=== PATIENT | female | born 1950 | race Caucasian/White ===

== ENCOUNTER 2017-07-18 10:33 | Inpatient (IN) | payer OTHER ==
[~2017-07-18] VITALS: Ht 157.5 cm; Wt 59.2 kg
[~2017-07-18 10:33] MED LIST: ADVAIR 250-501 EACH INH; MEDROL4 M2 PO; VENTOLIN HFA18 GM INH; ZITHROMAX250 M2 PO
--- NOTE | 2017-07-18 10:41 | ED DYSPNEA/ASTHMA COMPLAINT ---
History of Present Illness General Chief Complaint: Dyspnea (COPD, CHF, Other) Stated Complaint: SOB Source: patient, family, EMS Exam Limitations: poor historian Vital Signs & Intake/Output Vital Signs & Intake/Output Vital Signs Date Time Temp Pulse Resp B/P B/P Pulse O2 O2 Flow FiO2 Mean Ox Delivery Rate 07/18 1325 96 BIPAP 40% 07/18 1310 98.0 57 22 136/68 97 BIPAP 40% 07/18 1245 55 95 07/18 1206 57 22 103/56 96 BIPAP 40% 07/18 1105 63 95 07/18 1046 93 Room Air 3.0L 07/18 1039 96.4 70 24 162/105 98 Aerosol Mask Allergies Coded Allergies: No Known Allergies (03/10/17) Reconcile Medications Albuterol Sulfate 2 MG/5 ML SYRUP 5 ML PO 4 TIMES/DAY BREATHING PROBLEMS ( Reported) Albuterol Sulfate (Ventolin Hfa) 90 MCG HFA.AER.AD 2 PUF INH AD PRN RESP. ( Reported) Bupropion HCl (Bupropion HCl Sr) 150 MG TABLET.ER 1 TAB PO DAILY MENTAL HEALTH (Reported) Cefuroxime Axetil (Cefuroxime) 500 MG TABLET 1 TAB PO BID ANTIBIOTIC, INFECTION (Reported) Diltiazem HCl (Cardizem Cd) 240 MG CAP.ER.24H 1 CAP PO DAILY HEART (Reported) Fluticasone/Salmeterol (Advair 250-50 Diskus) (Unknown Strength) BLST.W.DEV ( Unknown Dose) INH BID RESP. (Reported) Furosemide 20 MG TABLET 1 TAB PO DAILY WATER RETENTION (Reported) Metoprolol Succinate 100 MG TAB.ER.24H 1 TAB PO DAILY HEART (Reported) Prednisone 10 MG TABLET 1 TAB PO BID STEROID (Reported) Triage Nurses Notes Reviewed? yes Onset: Abrupt Duration: hour(s):, constant, continues in ED Timing: recent history Severity: moderate, severe HPI: 66-year-old female with a history of COPD comes in respiratory distress from home. She is normally from [place]. She is visiting her daughter. She reports that she still smokes cigarettes. She started with significant breathing issues this morning. Associated cough and some chest tightness and pain. She reports that she was recently treated for pneumonia. BLS reports that her oxygen saturation was 40% on room air when they arrived. Patient was placed on a nebulizer treatment given 125 mg of Solu-Medrol and 2 g of magnesium in route by the plastics factory worker. Her breathing has improved but she still having respiratory symptoms. (Pilo Suggs) Past History Travel History Traveled to [place] past 21 day No Medical History Any Pertinent Medical History? 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 No (Pilo Suggs) Review of Systems Review of Systems Constitutional: Reports: see HPI. EENTM: Reports: see HPI. Respiratory: Reports: see HPI. Cardiovascular: Reports: see HPI. GI: Reports: no symptoms. Genitourinary: Reports: no symptoms. Musculoskeletal: Reports: no symptoms. Skin: Reports: no symptoms. Neurological/Psychological: Reports: no symptoms. Hematologic/Endocrine: Reports: no symptoms. Immunologic/Allergic: Reports: no symptoms. All Other Systems: Reviewed and Negative (Pilo Suggs) Physical Exam Physical Exam General Appearance: alert, awake, severe distress Head: atraumatic Eyes: Bilateral: normal appearance. Ears, Nose, Throat: hearing grossly normal Neck: normal inspection Respiratory: decreased breath sounds, rhonchi, wheezing, respiratory distress ( moderate/severe) Cardiovascular: regular rate/rhythm Extremities: normal inspection Neurologic/Psych: awake, alert Skin: intact, normal color Core Measures ACS in differential dx? Yes CVA/TIA Diagnosis No Sepsis Present: No Sepsis Focused Exam Completed? No (Pilo Suggs) Progress Differential Diagnosis: asthma, AMI, bronchitis, costochondritis, CHF, COPD, pericarditis, pulmonary embolism, pneumonia, pneumothorax, rib fracture, unstable angina Plan of Care: Orders Procedure Date/time Status Patient Data 07/18 1329 Active BIPAP 07/18 1320 Complete ARTERIAL BLOOD GAS (GEN) 07/18 1302 Complete Admit to inpatient 07/18 1213 Active BLOOD CULTURE 07/18 1210 Active BIPAP 07/18 1105 Complete ARTERIAL BLOOD GAS (GEN) 07/18 1041 Complete Telemetry/Banking Analyst 07/18 104 Active LOWER RESPIRATORY CULTURE 07/18 104 Active TROPONIN LEVEL 07/18 104 Complete COMPREHENSIVE METABOLIC PANEL 07/18 104 Complete CBC WITHOUT DIFFERENTIAL 07/18 104 Complete EKG 07/19 1039 Active Laboratory Tests 07/18/17 1250: pH 7.32 L, pCO2 71 *H, pO2 78 L, HCO3 36 H, ABG O2 Sat (Measured) 92.0 L, Carboxyhemoglobin 2.5, O2 Concentration % 40%, Respiration Rate 22, O2 Delivery Method VISION, Vent Mode ST, Expiratory Pressure 6, Inspiratory Pressure 22, Phlebotomy Draw Site LEFT RADIAL 07/18/17 1110: Anion Gap 8, Estimated GFR > 60, BUN/Creatinine Ratio 20.0, Glucose 173 H, Calcium 8.5, Total Bilirubin 0.9, AST 24, ALT 57 H, Alkaline Phosphatase 81, Troponin I < 0.01, Total Protein 6.8, Albumin 3.6, Globulin 3.2, Albumin/ Globulin Ratio 1.1, CBC w Diff NO MAN DIFF REQ, RBC 4.94, MCV 91.2, MCH 29.1, MCHC 31.9 L, RDW 16.1 H, MPV 7.5, Gran % 76.2 H, Lymphocytes % 13.7 L, Monocytes % 7.9, Eosinophils % 2.0, Basophils % 0.2, Absolute Granulocytes 9.8 H, Absolute Lymphocytes 1.8, Absolute Monocytes 1.0 H, Absolute Eosinophils 0.3 , Absolute Basophils 0 07/18/17 1050: pH 7.27 *L, pCO2 76 *H, pO2 75 L, HCO3 34 H, ABG O2 Sat (Measured) 90.0 L, Carboxyhemoglobin 2.7, O2 Concentration % 3L, O2 Delivery Method NC, Phlebotomy Draw Site LEFT RADIAL Microbiology 07/18 1220 BLOOD: Blood Culture - RECD 07/18 1210 BLOOD: Blood Culture - RECD 07/18 104 LOWER RESP: Respiratory Culture - ORD 07/19 1039 LOWER RESP: Gram Stain - ORD Diagnostic Imaging: Viewed by Me: Radiology Read. Discussed w/RAD: Radiology Read. Radiology Impression: PATIENT: ROSS MARRUFO PRESENT AGE: 66 PATIENT ACCOUNT NO: [id number] : 50 LOCATION: [facility] ORDERING PHYSICIAN: Pilo HOFFMAN SERVICE DATE: 07/18/17 EXAM TYPE : RAD - XRY-PORTABLE CHEST XRAY EXAMINATION: XR PORTABLE CHEST CLINICAL INFORMATION: Shortness of breath. COMPARISON: Chest radiograph dated 03/10/2017. TECHNIQUE: Portable frontal view of the chest was obtained. FINDINGS: The cardiac silhouette remains minimally enlarged. There is uncoiling of the thoracic aorta. There are hazy bibasilar opacities. These were not seen on the prior examination and may represent an infectious process. No pleural effusion or pneumothorax. Degenerative changes of the shoulders. IMPRESSION: New hazy bibasilar opacities. Pneumonia is not excluded. DICTATED BY: Ivan Pack MD DATE/TIME DICTATED:07/18/171147 COOKER PIE FILLING:GLORIA DATE/TIME TRANSCRIBED:07/18/171147 CONFIDENTIAL, DO NOT COPY WITHOUT APPROPRIATE AUTHORIZATION. <Electronically signed in Other Vendor System> SIGNED BY: Ivan Pack MD 07/18/17 7561 Initial ED EKG: normal sinus rhythm, rate (69), PEAKED T WAVES (Pilo Suggs) Comments: 07/18/2017 12:15:53 PM patient is tolerating BiPAP well and feels better. She appears comfortable and physical examination reveals improved air entry bilaterally. 07/18/2017 1:24:03 PM patient's case discussed with Dr. Garcia. (Marzena INTERIANO,Tree Schroeder) Departure Departure Disposition: STILL A PATIENT Condition: Stable Clinical Impression Primary Impression: Respiratory failure Secondary Impressions: Pneumonia Referrals: Patient Has No Primary Care Dr (PCP/Family) Departure Forms: Customer Survey General Discharge Information (Pilo Suggs) Admission Note Spoke With: Jose INTERIANO,Antoni Le Documentation of Exam: Documentation of any treatments & extenuating circumstances including Concerns Regarding Discharge (functional status, medication knowledge or non-compliance, living conditions, etc.) that warrant an admission rather than observation: Patient presents with worsening shortness of breath and is in fact in hypercapnic respiratory failure. The patient now requires aggressive management with BiPAP and close clinical monitoring of her condition and pulse oximetry. Patient cannot be safely treated as an outpatient as her hypercapnia will prevent her from following outpatient treatment recommendations. She is in fact a high risk of respiratory failure and mortality. I feel she now requires hospitalization as outlined above. In addition patient should have oxygen supplemented as needed and weaned as tolerated. Pulmonology consultation should be considered. Medications should be optimized. I feel this patient will require a multiple day hospitalization. PA/BLASTING COAL MINER Co-Sign Statement Statement: ED Attending supervision documentation- [X] I saw and evaluated the patient. I have also reviewed all the pertinent lab results and diagnostic results. I agree with the findings and the plan of care as documented in the PA's/BLASTING COAL MINER's documentation. Patient presents for evaluation of worsening shortness of breath while visiting her daughter. Physical examination reveals diminished breath sounds bilaterally with scattered end expiratory wheezing and rhonchi. [] I have reviewed the ED Record and agree with the PA's/BLASTING COAL MINER's documentation. [] Additions or exceptions (if any) to the PAs/BLASTING COAL MINER's note and plan are summarized below: [] (Marzena INTERIANO,Tree Schroeder) Critical Care Note Critical Care Note Critical Care Time: 30-74 min (60) (Raúl HOFFMAN,Pilo)
[2017-07-18 11:23] LABS: ABSOLUTE BASOPHIL COUNT 0 /CUMM (0.0-0.2); ABSOLUTE EOSINOPHIL COUNT 0.3 /CUMM (0.0-0.7); ABSOLUTE GRANULOCYTE CT 9.8 /CUMM (1.4-6.5); ABSOLUTE LYMPH COUNT 1.8 /CUMM (1.2-3.4); BASOPHIL % 0.2 % (0.0-2.0); GRANULOCYTE % 76.2 % (42.2-75.2); MEAN CORPUSCULAR HGB 29.1 PG (27.0-31.0); MEAN CORPUSCULAR HGB CONC 31.9 G/DL (33.0-37.0); MEAN CORPUSCULAR VOLUME 91.2 FL (81.0-99.0); MEAN PLATELET VOLUME 7.5 FL (7.4-10.4); PLATELET COUNT 248 /CUMM (130-400); RBC DISTRIBUTION WIDTH 16.1 % (11.5-14.5); RED BLOOD CELL CT 4.94 /CUMM (4.20-5.40); WHITE BLOOD CELL COUNT 12.9 /CUMM (4.8-10.8)
--- NOTE | 2017-07-18 11:54 | RADIOLOGY REPORT ---
EXAMINATION: XR PORTABLE CHEST CLINICAL INFORMATION: Shortness of breath. COMPARISON: Chest radiograph dated 03/10/2017. TECHNIQUE: Portable frontal view of the chest was obtained. FINDINGS: The cardiac silhouette remains minimally enlarged. There is uncoiling of the thoracic aorta. There are hazy bibasilar opacities. These were not seen on the prior examination and may represent an infectious process. No pleural effusion or pneumothorax. Degenerative changes of the shoulders. IMPRESSION: New hazy bibasilar opacities. Pneumonia is not excluded.
[2017-07-18] MEDS ORDERED: BUPROPION HCL150 M4 PO (13:03)
[2017-07-18] MEDS ORDERED: FUROSEMIDE20 M1 PO (13:03)
[2017-07-18] MEDS ORDERED: CEFUROXIME500 MG PO (13:04)
[2017-07-18] MEDS ORDERED: ALBUTEROL S2 MG/5 M1 PO (13:05)
[2017-07-18] MEDS ORDERED: PREDNISONE10 M2 PO (13:06)
[2017-07-18] MEDS ORDERED: CARDIZEM CD240 M1 PO (13:06)
[2017-07-18] MEDS ORDERED: METOPROLOL SUC100 M2 PO (13:06)
--- NOTE | 2017-07-18 14:20 | Admission Certification ---
Admission Certification Certification Statement - As attending physician, I certify that at the time of - admission, based on clinical presentation, severity of - symptoms, need for further diagnostic testing and - therapeutic interventions, and risk of adverse outcomes - without in-hospital treatment, in my clinical assessment, - this patient requires an acute hospital stay for a minimum - of two nights or longer. I have also considered psychsocial - factors such as support system, advanced age, financial - issues, cognitive issues, and failed out-patient treatments, - past re-admission history, safety of patient, and lack of - compliance as applicable. Specific rationale supporting this admission is: Resp failure
--- NOTE | 2017-07-18 14:30 | Cons- CRCU ---
General Information and HPI Consulting Request Date of Consult: 07/18/17 Requested By: ed History of Present Illness: 66-year-old female with a history of COPD comes in respiratory distress from home. She is normally from [place]. She is visiting her daughter. She reports that she still smokes cigarettes. She started with significant breathing issues this morning. Associated cough and some chest tightness and pain. She reports that she was recently treated for pneumonia. BLS reports that her oxygen saturation was 40% on room air when they arrived. Patient was placed on a nebulizer treatment given 125 mg of Solu-Medrol and 2 g of magnesium in route by the shirt ironer supervisor. Her breathing has improved but she still having respiratory symptoms. Since admission to the ed she is on bipap with prob resp insuff and being admitted to the icu No etoh or sub use no previous intubation On home oxygen Recent dc from hospital with resp failure Constitutional: Reports: see HPI. EENTM: Reports: see HPI. Respiratory: Reports: see HPI. Cardiovascular: Reports: see HPI. GI: Reports: no symptoms. Genitourinary: Reports: no symptoms. Musculoskeletal: Reports: no symptoms. Skin: Reports: no symptoms. Neurological/Psychological: Reports: no symptoms. Hematologic/Endocrine: Reports: no symptoms. Immunologic/Allergic: Reports: no symptoms. All Other Systems: Reviewed and Negative Allergies/Medications Allergies: Coded Allergies: No Known Allergies (03/10/17) Home Med List: Albuterol Sulfate 2 MG/5 ML SYRUP 5 ML PO 4 TIMES/DAY BREATHING PROBLEMS ( Reported) Albuterol Sulfate (Ventolin Hfa) 90 MCG HFA.AER.AD 2 PUF INH AD PRN RESP. ( Reported) Bupropion HCl (Bupropion HCl Sr) 150 MG TABLET.ER 1 TAB PO DAILY MENTAL HEALTH (Reported) Cefuroxime Axetil (Cefuroxime) 500 MG TABLET 1 TAB PO BID ANTIBIOTIC, INFECTION (Reported) Diltiazem HCl (Cardizem Cd) 240 MG CAP.ER.24H 1 CAP PO DAILY HEART (Reported) Fluticasone/Salmeterol (Advair 250-50 Diskus) (Unknown Strength) BLST.W.DEV ( Unknown Dose) INH BID RESP. (Reported) Furosemide 20 MG TABLET 1 TAB PO DAILY WATER RETENTION (Reported) Metoprolol Succinate 100 MG TAB.ER.24H 1 TAB PO DAILY HEART (Reported) Prednisone 10 MG TABLET 1 TAB PO BID STEROID (Reported) Review of Systems Review of Systems Constitutional: Reports: see HPI. 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: NONE Surgical History Surgical History: non-contributory Exam & Diagnostic Data Last 24 Hrs of Vital Signs/I&O Vital Signs Date Time Temp Pulse Resp B/P B/P Pulse O2 O2 Flow FiO2 Mean Ox Delivery Rate 07/18 1325 96 BIPAP 40% 07/18 1310 98.0 57 22 136/68 97 BIPAP 40% 07/18 1245 55 95 07/18 1206 57 22 103/56 96 BIPAP 40% 07/18 1105 63 95 07/18 1046 93 Room Air 3.0L 07/18 1039 96.4 70 24 162/105 98 Aerosol Mask Intake & Output 07/18 1600 07/18 0800 07/18 0000 Intake Total Output Total Balance Patient 138 lb Weight Weight Reported by Patient Measurement Method Last 48 Hrs of Labs/Sean: Laboratory Tests 07/18/17 1250: pH 7.32 L, pCO2 71 *H, pO2 78 L, HCO3 36 H, ABG O2 Sat (Measured) 92.0 L, Carboxyhemoglobin 2.5, O2 Concentration % 40%, Respiration Rate 22, O2 Delivery Method VISION, Vent Mode ST, Expiratory Pressure 6, Inspiratory Pressure 22, Phlebotomy Draw Site LEFT RADIAL 07/18/17 1110: Anion Gap 8, Estimated GFR > 60, BUN/Creatinine Ratio 20.0, Glucose 173 H, Calcium 8.5, Total Bilirubin 0.9, AST 24, ALT 57 H, Alkaline Phosphatase 81, Troponin I < 0.01, Total Protein 6.8, Albumin 3.6, Globulin 3.2, Albumin/ Globulin Ratio 1.1, CBC w Diff NO MAN DIFF REQ, RBC 4.94, MCV 91.2, MCH 29.1, MCHC 31.9 L, RDW 16.1 H, MPV 7.5, Gran % 76.2 H, Lymphocytes % 13.7 L, Monocytes % 7.9, Eosinophils % 2.0, Basophils % 0.2, Absolute Granulocytes 9.8 H, Absolute Lymphocytes 1.8, Absolute Monocytes 1.0 H, Absolute Eosinophils 0.3 , Absolute Basophils 0 07/18/17 1050: pH 7.27 *L, pCO2 76 *H, pO2 75 L, HCO3 34 H, ABG O2 Sat (Measured) 90.0 L, Carboxyhemoglobin 2.7, O2 Concentration % 3L, O2 Delivery Method NC, Phlebotomy Draw Site LEFT RADIAL Assessment/Plan CRCU Impression/Plan: General Appearance: alert, awake, severe distress Head: atraumatic Eyes: Bilateral: normal appearance. Ears, Nose, Throat: hearing grossly normal Neck: normal inspection Respiratory: decreased breath sounds, rhonchi, wheezing, respiratory distress ( moderate/severe) Cardiovascular: regular rate/rhythm Extremities: normal inspection Neurologic/Psych: awake, alert Skin: intact, normal color Cxr FINDINGS: The cardiac silhouette remains minimally enlarged. There is uncoiling of the thoracic aorta. There are hazy bibasilar opacities. These were not seen on the prior examination and may represent an infectious process. No pleural effusion or pneumothorax. Degenerative changes of the shoulders. IMPRESSION: New hazy bibasilar opacities. Pneumonia is not excluded. ABG reviewed IMPRESSION 66 y/o lady with clinically has severe copd with * Acute hypercarbic and hypoxic resp failure due to copde compounded by bilateral infiltrates rule out pna * On going smoking * HTN * Depression * On high dose betablocker which is compounding the issue * LBA on lidoderm patches REC * Admit * BIpap current setting ok * ATC nebs q4 duoneb * Prn low dose morphine for dyspnea * Cont dilt and can increase the dose if needed * Reduce metoprolol to 25 qd * Cont bupropion * Hold MDI * Sputum culture * Urinary antigens * Urine tox screen ordered by ed follow results * When stable will consider a chest ct scan prob in am Pt is critically ill tts 38 mins Smoking cessation counselling done Consult Acknowledgment - Thank you for your consult request.
[2017-07-18 15:00] VITALS: BP 132/60
--- NOTE | 2017-07-18 15:06 | History & Physical ---
General Information and HPI MD Statement: I have seen and personally examined ROSS MARRUFO and documented this H&P. The patient is a 66 year old F who presented with a patient stated chief complaint of [SOB ]. Source of Information: patient, old records Exam Limitations: clinical condition, poor historian History of Present Illness: This is a 66-year-old female with past medical history significant for COPD on 3 L home oxygen, hypertension, bronchitis, who comes in for chief complaint of shortness of breath. Notably, patient is a very poor historian and is on BiPAP, so history is very limited. From what I can obtain, she is visiting her daughter from [facility]. She is using a travel oxygen tank and ran out of oxygen this morning. Yesterday she had an episode of chest pain for which she took a "Uzbek pill," which turns out to be propanolol 40 mg in addition to her metoprolol 100 mg. She was significantly short of breath this morning that her daughter called the ambulance. On arrival she was found to be saturating 40% on room air. She received nebs, 125 of IV Solu-Medrol and 2 g of magnesium. She is a current smoker down to less than half a pack a day. Duration is unknown. She denies alcohol or any other drugs. Denies recent URI, fever, headache, nausea, vomiting, or sick contacts. She does report chest pain about twice a week which is midsternal and of a stabbing quality. At baseline she is not very ambulatory so it is hard to tell if this chest pain is of exertional nature are not. She uses her oxygen intermittently at night. Allergies/Medications Allergies: Coded Allergies: No Known Allergies (03/10/17) Home Med list Albuterol Sulfate 2 MG/5 ML SYRUP 5 ML PO 4 TIMES/DAY BREATHING PROBLEMS ( Reported) Albuterol Sulfate (Ventolin Hfa) 90 MCG HFA.AER.AD 2 PUF INH AD PRN RESP. ( Reported) Bupropion HCl (Bupropion HCl Sr) 150 MG TABLET.ER 1 TAB PO DAILY MENTAL HEALTH (Reported) Cefuroxime Axetil (Cefuroxime) 500 MG TABLET 1 TAB PO BID ANTIBIOTIC, INFECTION (Reported) Fluticasone/Salmeterol (Advair 250-50 Diskus) (Unknown Strength) BLST.W.DEV ( Unknown Dose) INH BID RESP. 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 Ambulation: independent IADLs Independent: shopping, housework, finances, food prep, telephone, transportation , medication admin. Review of Systems Review of Systems Constitutional: Reports: see HPI. Exam & Diagnostic Data Last 24 Hrs of Vital Signs/I&O Vital Signs Date Time Temp Pulse Resp B/P B/P Pulse O2 O2 Flow FiO2 Mean Ox Delivery Rate 07/18 1435 97.6 66 22 128/60 96 BIPAP 40% 07/18 1325 96 BIPAP 40% 07/18 1310 98.0 57 22 136/68 97 BIPAP 40% 07/18 1245 55 95 07/18 1206 57 22 103/56 96 BIPAP 40% 07/18 1105 63 95 07/18 1046 93 Room Air 3.0L 07/18 1039 96.4 70 24 162/105 98 Aerosol Mask Intake & Output 07/18 1600 07/18 0800 07/18 0000 Intake Total Output Total Balance Patient 62.596 kg Weight Weight Reported by Patient Measurement Method Physical Exam General Appearance Alert, Oriented X3, Cooperative, on bipap HEENT Atraumatic, PERRLA Neck Supple Cardiovascular Regular Rate, No Murmurs Lungs not much air movement appreciated, slight wheeze at upper lobes. no crackles Abdomen Soft, No Tenderness Neurological Normal Speech Extremities trace edema Last 24 Hrs of Labs/Sean: Laboratory Tests 07/18/17 1250: pH 7.32 L, pCO2 71 *H, pO2 78 L, HCO3 36 H, ABG O2 Sat (Measured) 92.0 L, Carboxyhemoglobin 2.5, O2 Concentration % 40%, Respiration Rate 22, O2 Delivery Method VISION, Vent Mode ST, Expiratory Pressure 6, Inspiratory Pressure 22, Phlebotomy Draw Site LEFT RADIAL 07/18/17 1110: Anion Gap 8, Estimated GFR > 60, BUN/Creatinine Ratio 20.0, Glucose 173 H, Calcium 8.5, Total Bilirubin 0.9, AST 24, ALT 57 H, Alkaline Phosphatase 81, Troponin I < 0.01, Total Protein 6.8, Albumin 3.6, Globulin 3.2, Albumin/ Globulin Ratio 1.1, CBC w Diff NO MAN DIFF REQ, RBC 4.94, MCV 91.2, MCH 29.1, MCHC 31.9 L, RDW 16.1 H, MPV 7.5, Gran % 76.2 H, Lymphocytes % 13.7 L, Monocytes % 7.9, Eosinophils % 2.0, Basophils % 0.2, Absolute Granulocytes 9.8 H, Absolute Lymphocytes 1.8, Absolute Monocytes 1.0 H, Absolute Eosinophils 0.3 , Absolute Basophils 0 07/18/17 1050: pH 7.27 *L, pCO2 76 *H, pO2 75 L, HCO3 34 H, ABG O2 Sat (Measured) 90.0 L, Carboxyhemoglobin 2.7, O2 Concentration % 3L, O2 Delivery Method NC, Phlebotomy Draw Site LEFT RADIAL Microbiology 07/18 1220 BLOOD: Blood Culture - RECD 07/18 1210 BLOOD: Blood Culture - RECD 07/18 1040 LOWER RESP: Respiratory Culture - ORD 07/18 1040 LOWER RESP: Gram Stain - ORD Assessment/Plan Assessment: This is a 66-year-old female with past medical history significant for COPD on 3 L O2, hypertension, bronchitis, who comes in for chief complaint of shortness of breath. She was found to be saturating 40% on room air by EMS and was given Solu-Medrol, magnesium and nebulizer treatment. In the ED her ABG showed pH 7.27 PCO2 76, and bicarb 34, she was transitioned from nasal cannula to BiPAP. Most likely etiology of her hypoxic and hypercarbic respiratory failure is her underlying COPD, lack of oxygen and her double dose of beta-abilio. However, her chest pain is concerning for ischemic heart disease so will rule her out for ACS. Problem list: 1. Acute on chronic hypoxic and hypercarbic respiratory failure 2. Elevated white count of 12.9 3. History of hypertension Plan: 1. Acute on chronic hypoxic and hypercarbic respiratory failure: ABG indicates bicarb that is disproportionately elevated to PCO2 suggesting that this is not just an acute process, likely she has chronically elevated bicarb due to her chronic COPD. She seems to be improving on the BiPAP. She got 1 x Cef and Azithro in ED. Will hold off on further abx other than azithro for COPD as this is most likely not infectious. But if pt were to deteriorate would restart abx. * Echocardiogram * Blood cultures * Urine culture * Strep antigen * Legionella antigen * DuoNeb and TRC * Decrease metoprolol * Encourage smoking cessation * O2 as necessary * Continue BiPAP at current settings: IPAP 22, EPAP 6, respiratory rate 22 and FiO2 40% * U tox * Sputum culture * Repeat chest x-ray in a.m. * As needed low-dose morphine for dyspnea * Consider low-dose CT in a.m. Patient brought in a CD containing some imagery. I will keep it in her chart so it can be transitioned to Cytoguide 2. Chest pain: She has LISA score of 3 with 13% all cause mortality in 2 weeks * Troponin EKG 3 * Echocardiogram 3. Elevated glucose: Glucose 173. Likely secondary to Solu-Medrol. * Monitor fingerstick * HbA1c Full code Chemical DVT prophylaxis Regular diet As Ranked By This Provider Problem List: 1. Pneumonia 2. COPD exacerbation 3. Respiratory failure Core Measures/Misc (11/25) Acute Coronary Syndrome ACS Diagnosis: No Congestive Heart Failure Congestive Heart Failure Diagnosis No Cerebrovascular Accident CVA/TIA Diagnosis: No VTE (View Protocol) VTE Risk Factors Acute Medical Illness No Mechanical VTE Prophylaxis d/t N/A MechProphylax Ordered No VTE Pharm Prophylaxis d/t NA PharmProphylax ordered Sepsis (View protocol) Sepsis Present: Yes
[2017-07-19] VITALS: BP 136/70
[2017-07-19 08:00] VITALS: BP 106/54
[2017-07-19 08:05] LABS: ABSOLUTE BASOPHIL COUNT 0 /CUMM (0.0-0.2); ABSOLUTE EOSINOPHIL COUNT 0 /CUMM (0.0-0.7); ABSOLUTE GRANULOCYTE CT 13.3 /CUMM (1.4-6.5); ABSOLUTE LYMPH COUNT 0.5 /CUMM (1.2-3.4); ABSOLUTE MONOCYTE COUNT 0.2 /CUMM (0.10-0.60); BASOPHIL % 0.1 % (0.0-2.0); EOSINOPHIL % 0 % (0-5); HEMATOCRIT 43.7 % (37-47); MEAN CORPUSCULAR HGB 29.1 PG (27.0-31.0); MEAN CORPUSCULAR HGB CONC 32.2 G/DL (33.0-37.0); MEAN CORPUSCULAR VOLUME 90.6 FL (81.0-99.0); MEAN PLATELET VOLUME 8.3 FL (7.4-10.4); PLATELET COUNT 218 /CUMM (130-400); RBC DISTRIBUTION WIDTH 15.6 % (11.5-14.5); RED BLOOD CELL CT 4.82 /CUMM (4.20-5.40); WHITE BLOOD CELL COUNT 14.1 /CUMM (4.8-10.8)
--- NOTE | 2017-07-19 08:43 | PN- Resident CRCU ---
Subjective HPI/CRCU Issues: No acute events overnight. Pt did not require bipap yesterday. States she is breathing better. Objective Vital Signs & I&O Last 8 Hrs of Vitals and I&O: Laboratory Tests 07/19 07/18 07/18 07/18 0610 2210 1720 1510 Chemistry Sodium (137 - 145 mmol/L) 138 Potassium (3.5 - 5.1 mmol/L) 4.7 Chloride (98 - 107 mmol/L) 96 L Carbon Dioxide (22 - 30 mmol/L) 38 H Anion Gap (5 - 16) 4 L BUN (7 - 17 mg/dL) 14 Creatinine (0.5 - 1.0 mg/dL) 0.4 L Estimated GFR (>60 ml/min) > 60 Glucose (65 - 99 mg/dL) 215 H Calcium (8.4 - 10.2 mg/dL) 8.6 Phosphorus (2.5 - 4.5 mg/dL) 4.3 Magnesium (1.6 - 2.3 mg/dL) 1.7 Total Bilirubin (0.2 - 1.3 mg/dL) 0.4 AST (14 - 36 U/L) 15 ALT (9 - 52 U/L) 39 Troponin I (< 0.11 ng/ml) < 0.01 < 0.01 Albumin (3.5 - 5.0 g/dL) 3.1 L Hematology CBC w Diff NO MAN DIFF REQ WBC (4.8 - 10.8 /CUMM) 14.1 H RBC (4.20 - 5.40 /CUMM) 4.82 Hgb (12.0 - 16.0 G/DL) 14.0 Hct (37 - 47 %) 43.7 MCV (81.0 - 99.0 FL) 90.6 MCH (27.0 - 31.0 PG) 29.1 MCHC (33.0 - 37.0 G/DL) 32.2 L RDW (11.5 - 14.5 %) 15.6 H Plt Count (130 - 400 /CUMM) 218 MPV (7.4 - 10.4 FL) 8.3 Gran % (42.2 - 75.2 %) 94.7 H Lymphocytes % (20.5 - 51.1 %) 3.5 L Monocytes % (1.7 - 9.3 %) 1.7 Eosinophils % (0 - 5 %) 0 Basophils % (0.0 - 2.0 %) 0.1 Absolute Granulocytes (1.4 - 6.5 /CUMM) 13.3 H Absolute Lymphocytes (1.2 - 3.4 /CUMM) 0.5 L Absolute Monocytes (0.10 - 0.60 /CUMM) 0.2 Absolute Eosinophils (0.0 - 0.7 /CUMM) 0 Absolute Basophils (0.0 - 0.2 /CUMM) 0 Toxicology Urine Opiates Screen (>2000 NG/ML) < 100 Methadone Screen (>300 NG/ML) 61 Barbiturate Screen (>200 NG/ML) < 60 Ur Phencyclidine Scrn (>25 NG/ML) < 6.00 Amphetamines Screen (>1000 NG/ML) < 100 U Benzodiazepines Scrn (>200 NG/ML) < 85 Urine Cocaine Screen (>300 NG/ML) < 50 Urine Cannabis Screen (>50 NG/ML) < 5.00 Vital Signs Date Time Temp Pulse Resp B/P B/P Pulse O2 O2 Flow FiO2 Mean Ox Delivery Rate 07/19 1200 92 Nasal 3.0L Cannula 07/19 0932 73 144/68 07/19 0846 94 Nasal 3.0L Cannula 07/19 0800 91 Nasal 3.0L Cannula 07/19 0800 97.8 80 26 106/54 92 Nasal 3.0L Cannula 07/19 0400 95 Nasal 3.0L Cannula 07/19 0101 96 Nasal 4.0L Cannula 07/19 0000 95 Nasal 4.0L Cannula 07/19 0000 97.0 68 30 136/70 95 Nasal 4.0L Cannula 07/18 2104 Nasal 2.0L Cannula 07/18 2000 90 Nasal 5.0L Cannula 07/18 1500 88 Nasal 4.0L Cannula 07/18 1500 98.2 76 26 132/60 88 Nasal 4.0L Cannula 07/18 1435 97.6 66 22 128/60 96 BIPAP 40% 07/18 1430 66 94 07/18 1325 96 BIPAP 40% 07/18 1310 98.0 57 22 136/68 97 BIPAP 40% Intake & Output 07/19 1600 07/19 0800 07/19 0000 Intake Total 100 900 Output Total Balance 100 900 Intake, Oral 100 900 Vital Signs Date Time Temp Pulse Resp B/P B/P Pulse O2 O2 Flow FiO2 Mean Ox Delivery Rate 07/19 1200 92 Nasal 3.0L Cannula 07/19 0932 73 144/68 07/19 0846 94 Nasal 3.0L Cannula 07/19 0800 91 Nasal 3.0L Cannula 07/19 0800 97.8 80 26 106/54 92 Nasal 3.0L Cannula 07/19 0400 95 Nasal 3.0L Cannula 07/19 0101 96 Nasal 4.0L Cannula 07/19 0000 95 Nasal 4.0L Cannula 07/19 0000 97.0 68 30 136/70 95 Nasal 4.0L Cannula 07/18 2104 Nasal 2.0L Cannula 07/18 2000 90 Nasal 5.0L Cannula 07/18 1500 88 Nasal 4.0L Cannula 07/18 1500 98.2 76 26 132/60 88 Nasal 4.0L Cannula 07/18 1435 97.6 66 22 128/60 96 BIPAP 40% 07/18 1430 66 94 07/18 1325 96 BIPAP 40% 07/18 1310 98.0 57 22 136/68 97 BIPAP 40% 07/18 1245 55 95 07/18 1206 57 22 103/56 96 BIPAP 40% 07/18 1105 63 95 07/18 1046 93 Room Air 3.0L 07/18 1039 96.4 70 24 162/105 98 Aerosol Mask Last 24 Hours I&Os 07/19 1600 07/19 0800 07/19 0000 Intake Total 100 900 Output Total Balance 100 900 Intake, Oral 100 900 Laboratory Tests 07/19/17 0610: Anion Gap 4 L, Estimated GFR > 60, Glucose 215 H, Calcium 8.6, Phosphorus 4.3, Magnesium 1.7, Total Bilirubin 0.4, AST 15, ALT 39, Albumin 3.1 L, CBC w Diff NO MAN DIFF REQ, RBC 4.82, MCV 90.6, MCH 29.1, MCHC 32.2 L, RDW 15.6 H, MPV 8.3, Gran % 94.7 H, Lymphocytes % 3.5 L, Monocytes % 1.7, Eosinophils % 0, Basophils % 0.1, Absolute Granulocytes 13.3 H, Absolute Lymphocytes 0.5 L, Absolute Monocytes 0.2, Absolute Eosinophils 0, Absolute Basophils 0 07/18/17 2210: Troponin I < 0.01 07/18/17 1720: Troponin I < 0.01 07/18/17 1510: Urine Opiates Screen < 100, Methadone Screen 61, Barbiturate Screen < 60, Ur Phencyclidine Scrn < 6.00, Amphetamines Screen < 100, U Benzodiazepines Scrn < 85, Urine Cocaine Screen < 50, Urine Cannabis Screen < 5.00 Microbiology Date/Time Procedure - Status Source Growth 07/19 0600 Legionella Antigen - COLB URINE ROUT 07/19 0600 Streptococcus pneumoniae Antigen (M - COLB URINE ROUT 07/18 1500 Surveillance Culture - RECD UPPER RESP 07/18 1500 Surveillance Culture - RECD GI 07/18 1220 Blood Culture - RES BLOOD 07/18 1040 Respiratory Culture - COLB LOWER RESP 07/18 1040 Gram Stain - COLB LOWER RESP Orders Procedure Date/time Status Heart Healthy Diet 07/19 L Active STREP PNEUMO URINARY ANTIGEN 07/19 0600 Active LEGIONELLA URINARY ANTIGEN 07/19 0600 Active ICU LAB BUNDLE 07/19 0500 Complete CBC WITHOUT DIFFERENTIAL 07/19 0500 Complete OXYGEN SETUP (GEN) 07/19 UNK Complete Heart Healthy Diet 07/18 L Complete Clear Liquid Diet 07/18 D Complete TROPONIN LEVEL 07/18 2300 Complete EKG 07/18 2300 Active RT: Evaluation 07/18 2103 Active TROPONIN LEVEL 07/18 1700 Complete EKG 07/18 1700 Active VRE ACTIVE SURVIELLANCE 07/18 1509 Active ACTIVE SURVEILLANCE NARES 07/18 1509 Active Skin/Pressure Ulcer Assess (Sk 07/18 1445 Active Weight 07/18 1444 Complete Vital Signs 07/18 1444 Active Teach/Educate 07/18 1444 Active Precautions 07/18 1444 Active Pain Treatment and Response 07/18 1444 Active Nutritional Intake, Monitor 07/18 1444 Active Isolation 07/18 1444 Active Intake & Output 07/18 1444 Complete Patient Care Conference 07/18 1444 Active Activity/Ambulation 07/18 1444 Active TRC EVALUATION (GEN) 07/18 1423 Complete Pathway - chart 07/18 1423 Active House Staff 07/18 1423 Active Patient Data 07/18 1423 Active CASE MANAGEMENT CONSULT 07/18 1423 Active Code Status 07/18 1423 Active URINE DRUGS OF ABUSE 07/18 1341 Complete Patient Data 07/18 1329 Active BIPAP 07/18 1320 Complete ARTERIAL BLOOD GAS (GEN) 07/18 1302 Complete Admit to inpatient 07/18 1213 Active BLOOD CULTURE 07/18 1210 Active GLYCOSYLATED HGB 07/18 1110 Complete BIPAP 07/18 1105 Complete ARTERIAL BLOOD GAS (GEN) 07/18 1041 Complete Telemetry/Supervisory Lifeguard 07/18 1040 Active LOWER RESPIRATORY CULTURE 07/18 1040 Active TROPONIN LEVEL 07/18 1040 Complete COMPREHENSIVE METABOLIC PANEL 07/18 1040 Complete CBC WITHOUT DIFFERENTIAL 07/18 1040 Complete EKG 07/18 1040 Active Intake & Output 07/18 1038 Complete OXYGEN SETUP CHG 07/18 UNK Complete AEROSOL CHG 07/18 UNK Complete OXYGEN 07/18 UNK Complete OXYGEN TRANSPORT 07/18 UNK Complete THERAPIST ORDERS 07/18 UNK Complete OXYGEN SETUP (GEN) 07/18 UNK Complete AEROSOL (GEN) 07/18 UNK Complete Lab Add-on Test 07/18 UNK Active VTE Mechanical Prophylaxis 07/18 UNK Active Intake & Output 07/18 UNK Active FingerStick- Glucose 07/18 UNK Active Exam General Appearance: alert, awake, comfortable, talkative Respiratory: mild inspiratory wheezing, basilar crackles, Cardiovascular: regular rate/rhythm Gastrointestinal: normal bowel sounds, soft, non-tender Extremities: trace LE edema Current Medications: Current Medications Sig/Ranjeet Start time Last Medication Dose Route Stop Time Status Admin Acetaminophen 650 MG Q6P PRN 07/18 1430 AC PO Albuterol Sulfate 3 ML EVERY 4 HRS/AWAKE 07/19 0800 AC 07/19 INH 0845 Albuterol Sulfate 3 ML ONCE ONE 07/18 1330 DC 07/18 INH 07/18 1331 1325 Azithromycin 250 MG DAILY 07/19 09 AC 07/19 PO 0932 Azithromycin 500 MG ONCE ONE 07/18 1215 DC 07/18 Sodium Chloride 250 ML IV 07/18 1314 1344 Bupropion HCl 150 MG DAILY 07/19 09 AC 07/19 PO 0932 Enoxaparin Sodium 40 MG DAILY 07/19 09 AC 07/19 SC 0932 Ibuprofen 600 MG Q6P PRN 07/18 1430 AC PO Insulin Aspart 0 AT BEDTIME 07/19 2100 AC SC Insulin Aspart 0 TIDAC 07/19 1700 AC SC Ipratropium [place] 2.5 ML EVERY 4 HRS/AWAKE 07/19 0800 AC 07/19 INH 0846 Ipratropium [place] 2.5 ML ONCE ONE 07/18 1330 DC 07/18 INH 07/18 1331 1325 Methylprednisolone 40 MG Q8 07/19 0600 DC IV Methylprednisolone 40 MG Q8 07/18 1445 AC 07/19 IV 0604 Metoprolol Succinate 25 MG DAILY 07/19 0900 DC 07/19 PO 07/19 0901 0932 Morphine Sulfate 2 MG Q8P PRN 07/18 1515 AC IV Oxycodone/ 1 TAB Q6P PRN 07/18 1430 DC Acetaminophen PO Impression/Plan Impression/Problem List Impression: A: 66-year-old female with past medical history significant for COPD on 3 L O2, hypertension, bronchitis, who comes in for chief complaint of shortness of breath. She was found to be saturating 40% on room air by EMS and was given Solu-Medrol, magnesium and nebulizer treatment. In the ED her ABG showed pH 7.27 PCO2 76, and bicarb 34, she was transitioned from nasal cannula to BiPAP. Most likely etiology of her hypoxic and hypercarbic respiratory failure is her underlying COPD, lack of oxygen and her double dose of beta-abilio. However, her chest pain is concerning for ischemic heart disease so will rule her out for ACS. Problems: Respiratory #Acute on chronic hypoxic and hypercarbic respiratory failure with possible bronchial spasm from extra betablocker dose Patient has COPD on 3 L home oxygen. She is visiting her daughter from [facility] with using a travel oxygen tank and ran out of oxygen. She also has a history for chest pain for which she took a "Malay pill," which turns out to be propanolol 40 mg in addition to her metoprolol 100 mg. Initial ABG showed pH 7.27 PCO2 76, and bicarb 34 and she was placed on Bipap. Repeat ABG reavealed pH 7.32, PCO2 71, bicarbonate 36. She receieved ceftriaxone x1, nebs IV solumedrol 125mg and 2mg of mg. Echo revealed normal LVEF with pulm htn with estimated RV systolic pressure of 55 mmHg. Most likely her acute on chronic hypoxic and hypercarbic respiratory failure due to running out of oxygen with possible bronchial spasm from extra betablocker dose. -start spiriva and symbicort -cont trc nebs -decreased solumedrol to q12 and switch to 60mg prednisone tomorrow -patient has imaging CT contianing PET? will require way to view it #nicotine dependence Continues to smoke but states 3-4 cigarrettes daily Counseled regarding emphysema and smoking. States that she previously had vivid dreams with varenicline. -cont wellbutrin Infection #leukocytosis ? Pna Initial WBC 12.9. CXR: New hazy bibasilar opacities. Pneumonia is not excluded. Patient continues to have leukocytosis without fever. Possibly reactive leukocytosis and steroid induced. Received ceftriaxone x1 dose in ED -cont to monitor for signs of infection Cardiac #HTN -restarted metoprolol @50 though her home dose is 100 as her BP and HR are well controlled -restarted lasix 20 daily -patient states she is not on cardizem Heme onc:none Metabolic #hyperglucosemia Blood sugars 200-300s. HgbA1c 7.0. No history of diabetes. -steroids are likely contributing to increased glucose -will start metformin Alimentary:none Neuro: none House keeping FULL CODE DVT - prophylaxis LOVENOX Problem List: 1. Respiratory failure 2. COPD exacerbation Pain Ratin Tomorrow's Labs & Rationales: cbc bep mg Plan DVT/Prophylaxis: lovenox
[2017-07-19 09:23] LABS: GRANULOCYTE % 94.7 % (42.2-75.2)
--- NOTE | 2017-07-19 11:10 | ECHOCARDIOGRAM REPORT ---
ROSS MARRUFO Age: 66 : 1950 Gender: F Exam Date: 07/18/2017 16:22 Exam Location: [facility] Ht (in): 62 Wt (lb): 138 BSA: 1.67 BP: 132 / 60 Ordering Physician: Felicia Negro MD Referring Physician: Felicia Negro MD Technologist: Hermelinda Corrales CORAL Room Number: 111 Indications: CHEST PAIN Rhythm: Sinus Technical Quality: Fair FINDINGS Left Ventricle Normal size left ventricle. No obvious regional wall motion abnormalities. Left ventricular wall thickness increased. Normal left ventricular ejection fraction estimated at 55-60%. Right Ventricle Mild right ventricular dilatation. Right Atrium Mild right atrial dilatation. Left Atrium Mild left atrial dilatation. Mitral Valve Mitral valve thickened. Mild mitral annular calcification. Trace mitral regurgitation. Aortic Valve Trileaflet aortic valve. Diffuse thickening (sclerosis) of the aortic valve cusps without reduced excursion. No aortic stenosis. No aortic regurgitation. Tricuspid Valve Tricuspid valve not well visualized, grossly normal. Mild tricuspid regurgitation. Right ventricular systolic pressure estimated to be elevated at 55 mmHg. Pulmonic Valve Pulmonic valve not well visualized, grossly normal. Trace to mild pulmonic regurgitation. Pericardium Great Vessels Aortic root and proximal ascending aorta not well visualized, grossly normal. CONCLUSIONS 1. Mild aortic sclerosis is present with no valvular stenosis or insufficiency. 2. Mitral leaflet thickening is present with mild anular calcification and minimal mitral insufficiency with mid left atrial enlargement. 3. A very small pericardial effusion is present which is hemodynamically insignificant. 4. The left ventricular chamber size is normal with borderline to mild concentric hypertrophy and a normal ejection fraction with no resting wall motion abnormalities. 5. Mild enlargement of the right heart chambers is present with moderator band hypertrophy and mild tricuspid and pulmonic insufficiency with pulmonary hypertension and an estimated RV systolic pressure of 55 mmHg. Shauna Nettles M.D. (Electronically Signed) Final Date: 19 Jul 2017 11:09 MEASUREMENTS (Male / Female) Normal Values 2D ECHO LV Diastolic Diameter PLAX 3.4 cm 4.2 - 5.9 / 3.9 - 5.3 cm LV Systolic Diameter PLAX 2.1 cm 2.1 - 4.0 cm LV Fractional Shortening PLAX 38.2 % 25 - 46 % LV Ejection Fraction 2D Teich 69.6 % IVS Diastolic Thickness 1.4 cm LVPW Diastolic Thickness 1.4 cm LV Relative Wall Thickness 0.8 RV Internal Dim ED PLAX 3.5 cm 1.9 - 3.8 cm LVOT Diameter 1.9 cm Aortic Root Diameter 2.7 cm LA Systolic Diameter LX 4.2 cm 3.0 - 4.0 / 2.7 - 3.8 cm LA Volume 26.0 cm 18 - 58 / 22 - 52 cm Ascending Aorta Diameter 3.3 cm DOPPLER AV Peak Velocity 167.0 cm/s AV Peak Gradient 11.2 mmHg AV Mean Velocity 110.0 cm/s AV Mean Gradient 6.0 mmHg AV Velocity Time Integral 35.4 cm LVOT Peak Velocity 94.0 cm/s LVOT Peak Gradient 3.5 mmHg LVOT Mean Velocity 65.6 cm/s LVOT Mean Gradient 2.0 mmHg LVOT Velocity Time Integral 21.7 cm LVOT Stroke Volume 61.5 cm AV Area Cont Eq vti 1.7 cm AV Area Cont Eq pk 1.6 cm MV Peak Velocity 118.0 cm/s MV Peak Gradient 5.6 mmHg MV Mean Velocity 73.1 cm/s MV Mean Gradient 2.0 mmHg Mitral E Point Velocity 98.2 cm/s Mitral A Point Velocity 107.0 cm/s Mitral E to A Ratio 0.9 MV PHT Velocity 112.0 cm/s MV Deceleration [place] 462.0 cm/s MV Pressure Half Time 72.7 ms MV Area PHT 3.0 cm MV Deceleration Time 201.0 ms TR Peak Velocity 343.0 cm/s TR Peak Gradient 47.1 mmHg Right Atrial Pressure 5.0 mmHg Pulmonary Artery Systolic Pressu 52.1 mmHg Right Ventricular Systolic Press 52.1 mmHg PV Peak Velocity 134.0 cm/s PV Peak Gradient 7.2 mmHg PV Mean Velocity 88.0 cm/s PV Mean Gradient 4.0 mmHg PV Velocity Time Integral 31.5 cm LV E' Lateral Velocity 9.6 cm/s Mitral E to LV E' Lateral Ratio 10.3 LV E' Septal Velocity 6.0 cm/s Mitral E to LV E' Septal Ratio 16.3
--- NOTE | 2017-07-19 13:38 | PN- CRCU ---
Subjective HPI/Critical Care Issues: Doing much better Afebrile No significant cough Wheezing still Objective Current Medications: Current Medications Sig/Ranjeet Start time Last Medication Dose Route Stop Time Status Admin Acetaminophen 650 MG Q6P PRN 07/18 1430 AC PO Albuterol Sulfate 3 ML EVERY 4 HRS/AWAKE 07/19 0800 AC 07/19 INH 0845 Azithromycin 250 MG DAILY 07/19 0900 AC 07/19 PO 0932 Bupropion HCl 150 MG DAILY 07/19 09 AC 07/19 PO 0932 Enoxaparin Sodium 40 MG DAILY 07/19 0900 AC 07/19 SC 0932 Ibuprofen 600 MG Q6P PRN 07/18 1430 AC PO Insulin Aspart 0 AT BEDTIME 07/19 2100 CAN SC Insulin Aspart 0 TIDAC 07/19 1700 CAN SC Ipratropium [place] 2.5 ML EVERY 4 HRS/AWAKE 07/19 0800 AC 07/19 INH 0846 Metformin HCl 500 MG 0800,1700 07/19 1700 AC PO Methylprednisolone 40 MG Q8 07/19 0600 DC IV Methylprednisolone 40 MG Q8 07/18 1445 AC 07/19 IV 0604 Metoprolol Succinate 25 MG DAILY 07/19 0900 DC 07/19 PO 07/19 0901 0932 Morphine Sulfate 2 MG Q8P PRN 07/18 1515 AC IV Oxycodone/ 1 TAB Q6P PRN 07/18 1430 DC Acetaminophen PO Vital Signs & I&O Last 24 Hrs of Vitals and I&O: Vital Signs Date Time Temp Pulse Resp B/P B/P Pulse O2 O2 Flow FiO2 Mean Ox Delivery Rate 07/19 1200 92 Nasal 3.0L Cannula 07/19 0932 73 144/68 07/19 0846 94 Nasal 3.0L Cannula 07/19 0800 91 Nasal 3.0L Cannula 07/19 0800 97.8 80 26 106/54 92 Nasal 3.0L Cannula 07/19 0400 95 Nasal 3.0L Cannula 07/19 0101 96 Nasal 4.0L Cannula 07/19 0000 95 Nasal 4.0L Cannula 07/19 0000 97.0 68 30 136/70 95 Nasal 4.0L Cannula 07/18 2104 Nasal 2.0L Cannula 07/19 1999 90 Nasal 5.0L Cannula 07/18 1500 88 Nasal 4.0L Cannula 07/18 1500 98.2 76 26 132/60 88 Nasal 4.0L Cannula 07/18 1435 97.6 66 22 128/60 96 BIPAP 40% 07/18 1430 66 94 Intake & Output 07/19 1600 07/19 0800 07/19 0000 Intake Total 100 900 Output Total Balance 100 900 Intake, Oral 100 900 Impression/Plan Impression/Plan Impression/Plan: General Appearance: alert, awake, severe distress Head: atraumatic Eyes: Bilateral: normal appearance. Ears, Nose, Throat: hearing grossly normal Neck: normal inspection Respiratory: decreased breath sounds, rhonchi, wheezing, respiratory distress ( moderate/severe) Cardiovascular: regular rate/rhythm Extremities: normal inspection Neurologic/Psych: awake, alert Skin: intact, normal color Cxr FINDINGS: The cardiac silhouette remains minimally enlarged. There is uncoiling of the thoracic aorta. There are hazy bibasilar opacities. These were not seen on the prior examination and may represent an infectious process. No pleural effusion or pneumothorax. Degenerative changes of the shoulders. IMPRESSION: New hazy bibasilar opacities. Pneumonia is not excluded. IMPRESSION 66 y/o lady with clinically has severe copd with * Resolving Acute hypercarbic and hypoxic resp failure due to copde compounded by bilateral infiltrates rule out pna * On going smoking * HTN * Depression * On high dose betablocker which is compounding the issue * LBA on lidoderm patches * Has multiple other medical issues need to get old records REC * DC BiPAP * Starts Prevo 1 puff daily * Symbicort 2 puffs twice a day * Start metformin and back off on the insulin * Can change to Solu-Medrol 40 every 12 today and then switched to 60 mg of prednisone tomorrow and to wean off * ATC nebs q4 duoneb * Continue current medications * Patient was on diltiazem and if needed this can be restarted * Cont bupropion Stable to go to the floor
[2017-07-19 15:49] VITALS: BP 123/72
[2017-07-19 20:00] VITALS: BP 140/70
[2017-07-19 23:34] VITALS: BP 148/70
[2017-07-20 06:12] LABS: ABSOLUTE BASOPHIL COUNT 0 /CUMM (0.0-0.2); ABSOLUTE EOSINOPHIL COUNT 0 /CUMM (0.0-0.7); ABSOLUTE GRANULOCYTE CT 14.5 /CUMM (1.4-6.5); ABSOLUTE LYMPH COUNT 0.4 /CUMM (1.2-3.4); ABSOLUTE MONOCYTE COUNT 0.4 /CUMM (0.10-0.60); BASOPHIL % 0.1 % (0.0-2.0); EOSINOPHIL % 0.1 % (0-5); GRANULOCYTE % 94.6 % (42.2-75.2); HEMATOCRIT 40.9 % (37-47); MEAN CORPUSCULAR HGB CONC 32.1 G/DL (33.0-37.0); MEAN CORPUSCULAR VOLUME 90.4 FL (81.0-99.0); MEAN PLATELET VOLUME 7.9 FL (7.4-10.4); PLATELET COUNT 225 /CUMM (130-400); RBC DISTRIBUTION WIDTH 15.9 % (11.5-14.5); RED BLOOD CELL CT 4.52 /CUMM (4.20-5.40); WHITE BLOOD CELL COUNT 15.4 /CUMM (4.8-10.8)
[2017-07-20 08:00] VITALS: BP 130/70
--- NOTE | 2017-07-20 08:43 | PN- Resident CRCU ---
Jovi INTERIANO,[facility] 07/20/17 0842: Subjective HPI/CRCU Issues: No acute events overnight. Patient states she is doing well. This shortness of breath at this time. Objective Vital Signs & I&O Last 8 Hrs of Vitals and I&O: Laboratory Tests 07/20/17 0550: Anion Gap 8, Estimated GFR > 60, BUN/Creatinine Ratio 38.0 H, Magnesium 1.6, CBC w Diff NO MAN DIFF REQ, RBC 4.52, MCV 90.4, MCH 29.0, MCHC 32.1 L, RDW 15.9 H, MPV 7.9, Gran % 94.6 H, Lymphocytes % 2.8 L, Monocytes % 2.4, Eosinophils % 0.1, Basophils % 0.1, Absolute Granulocytes 14.5 H, Absolute Lymphocytes 0.4 L, Absolute Monocytes 0.4, Absolute Eosinophils 0, Absolute Basophils 0 07/19/17 1800: Triglycerides Cancelled Vital Signs Date Time Temp Pulse Resp B/P B/P Pulse O2 O2 Flow FiO2 Mean Ox Delivery Rate 07/20 854 91 Nasal 3.0L Cannula 07/20 08 68 130/70 07/20 0800 97.8 68 18 130/70 95 Nasal 3.0L Cannula 07/20 08 92 Nasal 3.0L Cannula Exam General Appearance: no apparent distress, alert, awake Respiratory: diffuse wheezing bilaterally Cardiovascular: regular rate/rhythm Gastrointestinal: normal bowel sounds, soft, non-tender Extremities: no LE edema Current Medications: Current Medications Sig/Ranjeet Start time Last Medication Dose Route Stop Time Status Admin Acetaminophen 650 MG Q6P PRN 07/18 1430 AC PO Albuterol Sulfate 3 ML EVERY 4 HRS/AWAKE 07/19 08 AC 07/20 INH 1226 Azithromycin 250 MG DAILY 07/19 09 AC 07/20 PO 0823 Budesonide/ 2 PUF BID 07/19 1344 AC 07/20 Formoterol Fumarate INH 0823 Bupropion HCl 150 MG DAILY 07/19 09 AC 07/20 PO 0823 Enoxaparin Sodium 40 MG DAILY 07/19 09 AC 07/20 SC 0823 Furosemide 20 MG DAILY 07/19 1415 AC 07/20 PO 0823 Ibuprofen 600 MG Q6P PRN 07/18 1430 AC PO Ipratropium [place] 2.5 ML EVERY 4 HRS/AWAKE 07/19 0800 AC 07/20 INH 1226 Magnesium Oxide 400 MG BID 07/20 0900 AC 07/20 PO 07/20 2101 0938 Metformin HCl 500 MG 0800,1700 07/19 1700 AC 07/20 PO 0823 Methylprednisolone 40 MG Q12 07/19 2100 DC 07/20 IV 0823 Metoprolol Succinate 25 MG DAILY 07/21 09 AC PO Metoprolol Succinate 50 MG DAILY 07/20 0900 DC 07/20 PO 0823 Metoprolol Succinate 100 MG DAILY 07/19 1401 DC PO Morphine Sulfate 2 MG Q8P PRN 07/18 1515 AC IV Potassium Chloride 40 MEQ ONCE ONE 07/20 1130 CAN PO 07/20 1131 Prednisone 60 MG DAILY 07/21 09 AC PO Tiotropium [place] 1 PUF DAILY 07/19 1345 AC 07/20 INH 0823 Impression/Plan Impression/Problem List Impression: A: 66-year-old female with past medical history significant for COPD on 3 L O2, hypertension, bronchitis, who comes in for chief complaint of shortness of breath. She was found to be saturating 40% on room air by EMS and was given Solu-Medrol, magnesium and nebulizer treatment. In the ED her ABG showed pH 7.27 PCO2 76, and bicarb 34, she was transitioned from nasal cannula to BiPAP. Most likely etiology of her hypoxic and hypercarbic respiratory failure is her underlying COPD, lack of oxygen and her double dose of beta-abilio. However, her chest pain is concerning for ischemic heart disease so will rule her out for ACS. Problems: Respiratory #Acute on chronic hypoxic and hypercarbic respiratory failure with possible bronchial spasm from extra betablocker dose Patient has COPD on 3 L home oxygen. She is visiting her daughter from [facility] with using a travel oxygen tank and ran out of oxygen. She also has a history for chest pain for which she took a "Vietnamese pill," which turns out to be propanolol 40 mg in addition to her metoprolol 100 mg. Initial ABG showed pH 7.27 PCO2 76, and bicarb 34 and she was placed on Bipap. Repeat ABG reavealed pH 7.32, PCO2 71, bicarbonate 36. She receieved ceftriaxone x1, nebs IV solumedrol 125mg and 2mg of mg. Urinary leigonella nad strep pneumo negative Echo revealed normal LVEF with pulm htn with estimated RV systolic pressure of 55 mmHg. Most likely her acute on chronic hypoxic and hypercarbic respiratory failure due to running out of oxygen with possible bronchial spasm from extra betablocker dose. -cont spiriva and symbicort -cont trc nebs -switch to 60mg prednisone tomorrow -pt takes azithromcin 250mg daily -Patient will require home oxygen -patient has imaging CT contianing PET? will require way to view it #nicotine dependence Continues to smoke but states 3-4 cigarrettes daily Counseled regarding emphysema and smoking. States that she previously had vivid dreams with varenicline. -cont wellbutrin Infection #leukocytosis ? Pna. Most likely 2/2 steroids Initial WBC 12.9. CXR: New hazy bibasilar opacities, pneumonia is not excluded. -Patient continues to have leukocytosis without fever. Most likely reactive leukocytosis and steroid induced. Received ceftriaxone x1 dose in ED -cont to monitor for signs of infection Cardiac #HTN -restarted metoprolol @50 though her home dose is 100. will reduce dose to 25 as her BP and HR are well controlled -restarted lasix 20 daily -pt states she doesnt take cardizem althought it is on her med list. will hold for now. Heme onc:none Metabolic #hyperglucosemia Blood sugars 200-300s. HgbA1c 7.0. No history of diabetes. -steroids are likely contributing to increased glucose -cont metformin Alimentary:none Neuro: none House keeping FULL CODE DVT - prophylaxis LYSSA Problem List: 1. Blood glucose elevated 2. COPD exacerbation Pain Ratin Tomorrow's Labs & Rationales: CBC BEP Plan DVT/Prophylaxis: lyssa Clark MD,Liz 07/20/17 1210: Attending MD Review Statement Attending Sign Off Attending Cosign Statement: I have: examined this patient, reviewed al EMR data, personally reviewd images, discussd w/resident/PA/COOK LARDER, discussed mgmt plan w/lynette, discussed mgmt plan w/pt, agreed w/resident/PA/COOK LARDER, amended to note. Other Findings: Patient seen and examined, feels overall better. Still requiring 3 L of oxygen. Vital Signs Date Time Temp Pulse Resp B/P B/P Pulse O2 O2 Flow FiO2 Mean Ox Delivery Rate 07/20 0855 91 Nasal 3.0L Cannula 07/20 0823 68 130/70 07/20 0800 97.8 68 18 130/70 95 Nasal 3.0L Cannula 07/20 0800 92 Nasal 3.0L Cannula 07/20 0000 92 Nasal 3.0L Cannula 07/19 2334 98.1 71 18 148/70 92 Nasal Cannula 07/19 2020 96 Nasal 3.0L Cannula 07/19 2000 82 140/70 97 Nasal 3.0L Cannula 07/19 1600 92 Nasal 3.0L Cannula 07/19 1549 98.4 86 24 123/72 96 Nasal 3.0L Cannula on exam; aox3, nad. cv; s1,s2, rrr resp; scattered exp wheeze. abd; soft, nt,bs+ ext; no edema Laboratory Tests 07/20 07/19 0550 1800 Chemistry Sodium (137 - 145 mmol/L) 138 Potassium (3.5 - 5.1 mmol/L) 4.7 Chloride (98 - 107 mmol/L) 95 L Carbon Dioxide (22 - 30 mmol/L) 36 H Anion Gap (5 - 16) 8 BUN (7 - 17 mg/dL) 19 H Creatinine (0.5 - 1.0 mg/dL) 0.5 Estimated GFR (>60 ml/min) > 60 BUN/Creatinine Ratio (7 - 25 %) 38.0 H Magnesium (1.6 - 2.3 mg/dL) 1.6 Triglycerides Cancelled Hematology CBC w Diff NO MAN DIFF REQ WBC (4.8 - 10.8 /CUMM) 15.4 H RBC (4.20 - 5.40 /CUMM) 4.52 Hgb (12.0 - 16.0 G/DL) 13.1 Hct (37 - 47 %) 40.9 MCV (81.0 - 99.0 FL) 90.4 MCH (27.0 - 31.0 PG) 29.0 MCHC (33.0 - 37.0 G/DL) 32.1 L RDW (11.5 - 14.5 %) 15.9 H Plt Count (130 - 400 /CUMM) 225 MPV (7.4 - 10.4 FL) 7.9 Gran % (42.2 - 75.2 %) 94.6 H Lymphocytes % (20.5 - 51.1 %) 2.8 L Monocytes % (1.7 - 9.3 %) 2.4 Eosinophils % (0 - 5 %) 0.1 Basophils % (0.0 - 2.0 %) 0.1 Absolute Granulocytes (1.4 - 6.5 /CUMM) 14.5 H Absolute Lymphocytes (1.2 - 3.4 /CUMM) 0.4 L Absolute Monocytes (0.10 - 0.60 /CUMM) 0.4 Absolute Eosinophils (0.0 - 0.7 /CUMM) 0 Absolute Basophils (0.0 - 0.2 /CUMM) 0 A/P; 66-year-old female with past medical history significant for hypertension, depression, low back pain, chronic rest today failure admitted with acute on chronic respiratory failure secondary to acute COPD exacerbation and acute bronchitis. Improving. Currently on 3 L of oxygen. Need to check her admitted to the O2 sat. She does have oxygen at home but does not use it all the time. She was only as needed. At this point she will likely need to use oxygen all the time. Please check her ambulatory O2 sat. Please follow for the pulmonology recommendations. She does have leukocytosis which is likely secondary to steroids. She'll be started on by mouth prednisone with a taper. Continue dressing nebs. Patient can be downgraded medicine floor. DVT prophylaxis: Lovenox. Please ask process planner to arrange for home oxygen. Likely discharge home tomorrow.
--- NOTE | 2017-07-20 10:30 | PN- Pulmonary ---
Subjective HPI/Critical Care Issues: Doing better Wheezing is improved No sputum Anxious to go home Objective Current Medications: Current Medications Sig/Ranjeet Start time Last Medication Dose Route Stop Time Status Admin Acetaminophen 650 MG Q6P PRN 07/18 1430 AC PO Albuterol Sulfate 3 ML EVERY 4 HRS/AWAKE 07/19 0800 AC 07/20 INH 0847 Azithromycin 250 MG DAILY 07/19 0900 AC 07/20 PO 0823 Budesonide/ 2 PUF BID 07/19 1344 AC 07/20 Formoterol Fumarate INH 0823 Bupropion HCl 150 MG DAILY 07/19 0900 AC 07/20 PO 0823 Enoxaparin Sodium 40 MG DAILY 07/19 0900 AC 07/20 SC 0823 Furosemide 20 MG DAILY 07/19 1415 AC 07/20 PO 0823 Ibuprofen 600 MG Q6P PRN 07/18 1430 AC PO Insulin Aspart 0 AT BEDTIME 07/19 2100 CAN SC Insulin Aspart 0 TIDAC 07/19 1700 CAN SC Ipratropium [place] 2.5 ML EVERY 4 HRS/AWAKE 07/19 0800 AC 07/20 INH 0847 Magnesium Oxide 400 MG BID 07/20 0900 AC 07/20 PO 07/20 2101 0938 Metformin HCl 500 MG 0800,1700 07/19 1700 AC 07/20 PO 0823 Methylprednisolone 40 MG Q12 07/19 2100 DC 07/20 IV 0823 Methylprednisolone 40 MG Q8 07/18 1445 DC 07/19 IV 0604 Metoprolol Succinate 50 MG DAILY 07/20 0900 AC 07/20 PO 0823 Metoprolol Succinate 100 MG DAILY 07/19 1401 DC PO Morphine Sulfate 2 MG Q8P PRN 07/18 1515 AC IV Prednisone 60 MG DAILY 07/21 0900 AC PO Tiotropium [place] 1 PUF DAILY 07/19 1345 AC 07/20 INH 0823 Vital Signs & I&O Last 24 Hrs of Vitals and I&O: Vital Signs Date Time Temp Pulse Resp B/P B/P Pulse O2 O2 Flow FiO2 Mean Ox Delivery Rate 07/20 0855 91 Nasal 3.0L Cannula 07/20 0823 68 130/70 07/20 0800 97.8 68 18 130/70 95 Nasal 3.0L Cannula 07/20 0800 92 Nasal 3.0L Cannula 07/20 0000 92 Nasal 3.0L Cannula 07/19 2334 98.1 71 18 148/70 92 Nasal Cannula 07/20 2019 96 Nasal 3.0L Cannula 07/19 2000 82 140/70 97 Nasal 3.0L Cannula 07/19 1600 92 Nasal 3.0L Cannula 07/19 1549 98.4 86 24 123/72 96 Nasal 3.0L Cannula 07/19 1200 92 Nasal 3.0L Cannula Intake & Output 07/20 1600 07/20 0800 07/20 0000 Intake Total 120 Output Total 700 600 Balance -700 -480 Intake, Oral 120 Number 0 0 Bowel Movements Output, Urine 700 600 Laboratory Tests 07/20 07/19 0550 1800 Chemistry Sodium (137 - 145 mmol/L) 138 Potassium (3.5 - 5.1 mmol/L) 4.7 Chloride (98 - 107 mmol/L) 95 L Carbon Dioxide (22 - 30 mmol/L) 36 H Anion Gap (5 - 16) 8 BUN (7 - 17 mg/dL) 19 H Creatinine (0.5 - 1.0 mg/dL) 0.5 Estimated GFR (>60 ml/min) > 60 BUN/Creatinine Ratio (7 - 25 %) 38.0 H Magnesium (1.6 - 2.3 mg/dL) 1.6 Triglycerides Cancelled Hematology CBC w Diff NO MAN DIFF REQ WBC (4.8 - 10.8 /CUMM) 15.4 H RBC (4.20 - 5.40 /CUMM) 4.52 Hgb (12.0 - 16.0 G/DL) 13.1 Hct (37 - 47 %) 40.9 MCV (81.0 - 99.0 FL) 90.4 MCH (27.0 - 31.0 PG) 29.0 MCHC (33.0 - 37.0 G/DL) 32.1 L RDW (11.5 - 14.5 %) 15.9 H Plt Count (130 - 400 /CUMM) 225 MPV (7.4 - 10.4 FL) 7.9 Gran % (42.2 - 75.2 %) 94.6 H Lymphocytes % (20.5 - 51.1 %) 2.8 L Monocytes % (1.7 - 9.3 %) 2.4 Eosinophils % (0 - 5 %) 0.1 Basophils % (0.0 - 2.0 %) 0.1 Absolute Granulocytes (1.4 - 6.5 /CUMM) 14.5 H Absolute Lymphocytes (1.2 - 3.4 /CUMM) 0.4 L Absolute Monocytes (0.10 - 0.60 /CUMM) 0.4 Absolute Eosinophils (0.0 - 0.7 /CUMM) 0 Absolute Basophils (0.0 - 0.2 /CUMM) 0 07/19 07/18 07/18 07/18 0610 2210 1720 1510 Chemistry Sodium (137 - 145 mmol/L) 138 Potassium (3.5 - 5.1 mmol/L) 4.7 Chloride (98 - 107 mmol/L) 96 L Carbon Dioxide (22 - 30 mmol/L) 38 H Anion Gap (5 - 16) 4 L BUN (7 - 17 mg/dL) 14 Creatinine (0.5 - 1.0 mg/dL) 0.4 L Estimated GFR (>60 ml/min) > 60 Glucose (65 - 99 mg/dL) 215 H Calcium (8.4 - 10.2 mg/dL) 8.6 Phosphorus (2.5 - 4.5 mg/dL) 4.3 Magnesium (1.6 - 2.3 mg/dL) 1.7 Total Bilirubin (0.2 - 1.3 mg/dL) 0.4 AST (14 - 36 U/L) 15 ALT (9 - 52 U/L) 39 Troponin I (< 0.11 ng/ml) < 0.01 < 0.01 Albumin (3.5 - 5.0 g/dL) 3.1 L Hematology CBC w Diff NO MAN DIFF REQ WBC (4.8 - 10.8 /CUMM) 14.1 H RBC (4.20 - 5.40 /CUMM) 4.82 Hgb (12.0 - 16.0 G/DL) 14.0 Hct (37 - 47 %) 43.7 MCV (81.0 - 99.0 FL) 90.6 MCH (27.0 - 31.0 PG) 29.1 MCHC (33.0 - 37.0 G/DL) 32.2 L RDW (11.5 - 14.5 %) 15.6 H Plt Count (130 - 400 /CUMM) 218 MPV (7.4 - 10.4 FL) 8.3 Gran % (42.2 - 75.2 %) 94.7 H Lymphocytes % (20.5 - 51.1 %) 3.5 L Monocytes % (1.7 - 9.3 %) 1.7 Eosinophils % (0 - 5 %) 0 Basophils % (0.0 - 2.0 %) 0.1 Absolute Granulocytes (1.4 - 6.5 /CUMM) 13.3 H Absolute Lymphocytes (1.2 - 3.4 /CUMM) 0.5 L Absolute Monocytes (0.10 - 0.60 /CUMM) 0.2 Absolute Eosinophils (0.0 - 0.7 /CUMM) 0 Absolute Basophils (0.0 - 0.2 /CUMM) 0 Toxicology Urine Opiates Screen (>2000 NG/ML) < 100 Methadone Screen (>300 NG/ML) 61 Barbiturate Screen (>200 NG/ML) < 60 Ur Phencyclidine Scrn (>25 NG/ML) < 6.00 Amphetamines Screen (>1000 NG/ML) < 100 U Benzodiazepines Scrn (>200 NG/ML) < 85 Urine Cocaine Screen (>300 NG/ML) < 50 Urine Cannabis Screen (>50 NG/ML) < 5.00 07/18 07/18 1250 1110 Blood Gas pH (7.35 - 7.45 PH) 7.32 L pCO2 (35 - 45 TORR) 71 *H pO2 (80 - 100 TORR) 78 L HCO3 (21 - 28 MEQ/L) 36 H ABG O2 Sat (Measured) (>96.0 %) 92.0 L Carboxyhemoglobin (1.5 - 5.0 %) 2.5 O2 Concentration % 40% Respiration Rate (BPM) 22 O2 Delivery Method VISION Vent Mode ST Expiratory Pressure (CM H2O P) 6 Inspiratory Pressure (CM H2O P) 22 Chemistry Sodium (137 - 145 mmol/L) 139 Potassium (3.5 - 5.1 mmol/L) 4.6 Chloride (98 - 107 mmol/L) 95 L Carbon Dioxide (22 - 30 mmol/L) 36 H Anion Gap (5 - 16) 8 BUN (7 - 17 mg/dL) 10 Creatinine (0.5 - 1.0 mg/dL) 0.5 Estimated GFR (>60 ml/min) > 60 BUN/Creatinine Ratio (7 - 25 %) 20.0 Glucose (65 - 99 mg/dL) 173 H Hemoglobin A1c (4.2 - 5.8 %) 7.0 H Calcium (8.4 - 10.2 mg/dL) 8.5 Total Bilirubin (0.2 - 1.3 mg/dL) 0.9 AST (14 - 36 U/L) 24 ALT (9 - 52 U/L) 57 H Alkaline Phosphatase (<127 U/L) 81 Troponin I (< 0.11 ng/ml) < 0.01 Total Protein (6.3 - 8.2 g/dL) 6.8 Albumin (3.5 - 5.0 g/dL) 3.6 Globulin (1.9 - 4.2 gm/dL) 3.2 Albumin/Globulin Ratio (1.1 - 2.2 %) 1.1 Hematology CBC w Diff NO MAN DIFF REQ WBC (4.8 - 10.8 /CUMM) 12.9 H RBC (4.20 - 5.40 /CUMM) 4.94 Hgb (12.0 - 16.0 G/DL) 14.4 Hct (37 - 47 %) 45.0 MCV (81.0 - 99.0 FL) 91.2 MCH (27.0 - 31.0 PG) 29.1 MCHC (33.0 - 37.0 G/DL) 31.9 L RDW (11.5 - 14.5 %) 16.1 H Plt Count (130 - 400 /CUMM) 248 MPV (7.4 - 10.4 FL) 7.5 Gran % (42.2 - 75.2 %) 76.2 H Lymphocytes % (20.5 - 51.1 %) 13.7 L Monocytes % (1.7 - 9.3 %) 7.9 Eosinophils % (0 - 5 %) 2.0 Basophils % (0.0 - 2.0 %) 0.2 Absolute Granulocytes (1.4 - 6.5 /CUMM) 9.8 H Absolute Lymphocytes (1.2 - 3.4 /CUMM) 1.8 Absolute Monocytes (0.10 - 0.60 /CUMM) 1.0 H Absolute Eosinophils (0.0 - 0.7 /CUMM) 0.3 Absolute Basophils (0.0 - 0.2 /CUMM) 0 Miscellaneous Phlebotomy Draw Site LEFT RADIAL 07/18 1050 Blood Gas pH (7.35 - 7.45 PH) 7.27 *L pCO2 (35 - 45 TORR) 76 *H pO2 (80 - 100 TORR) 75 L HCO3 (21 - 28 MEQ/L) 34 H ABG O2 Sat (Measured) (>96.0 %) 90.0 L Carboxyhemoglobin (1.5 - 5.0 %) 2.7 O2 Concentration % 3L O2 Delivery Method NC Miscellaneous Phlebotomy Draw Site LEFT RADIAL Microbiology Date/Time Procedure - Status Source Growth 07/19 1400 Legionella Antigen - COMP URINE ROUT 07/19 1400 Streptococcus pneumoniae Antigen (M - COMP URINE ROUT 07/18 1500 Surveillance Culture - COMP UPPER RESP 07/18 1500 Surveillance Culture - COMP GI 07/18 1220 Blood Culture - RES BLOOD 07/18 1210 Blood Culture - RES BLOOD 07/18 1040 Respiratory Culture - CAN LOWER RESP Cancelled: NO SAMPLE COLLECTED 07/18 1040 Gram Stain - CAN LOWER RESP Cancelled: NO SAMPLE COLLECTED Impression/Plan Impression/Plan Impression/Plan: General Appearance: alert, awake, severe distress Head: atraumatic Eyes: Bilateral: normal appearance. Ears, Nose, Throat: hearing grossly normal Neck: normal inspection Respiratory: decreased breath sounds, rhonchi, wheezing, respiratory distress ( moderate/severe) Cardiovascular: regular rate/rhythm Extremities: normal inspection Neurologic/Psych: awake, alert Skin: intact, normal color Cxr FINDINGS: The cardiac silhouette remains minimally enlarged. There is uncoiling of the thoracic aorta. There are hazy bibasilar opacities. These were not seen on the prior examination and may represent an infectious process. No pleural effusion or pneumothorax. Degenerative changes of the shoulders. IMPRESSION: New hazy bibasilar opacities. Pneumonia is not excluded. IMPRESSION 66 y/o lady with clinically has severe copd with * Resolving Acute hypercarbic and hypoxic resp failure due to copde compounded by bilateral infiltrates rule out pna * On going smoking * HTN * Depression * On high dose betablocker which is compounding the issue * LBA on lidoderm patches * Has multiple other medical issues need to get old records REC * Starts Spiriva1 puff daily * Symbicort 2 puffs twice a day * Metformin for DM * 60 mg of prednisone and to wean off * Change to prn nebs * Continue current medications * Patient was on diltiazem and if needed start dilt sr 160 qd * Reduce metoprolol to 25 qd * Cont bupropion 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
--- NOTE | 2017-07-20 14:26 | Patient Discharge Instructions ---
Discharge Instructions General Discharge Information Special Instructions: Please follow up with your pcp. Please follow up with your pulmnologist. Please have your pcp continue to monitor your blood sugars and possibly refer you to endocrinology. Acute Coronary Syndrome Inclusion Criteria At DC or during hospital stay patient has or had the following: ACS DIAGNOSIS No Discharge Core Measures Meds if any: Prescribed or Continued at Discharge Meds if any: NOT Prescribed or Continued at Discharge Congestive Heart Failure Inclusion Criteria At DC or during hospital stay patient has or had the following: CHF DIAGNOSIS No Discharge Core Measures Meds if any: Prescribed or Continued at Discharge Meds if any: NOT Prescribed or Continued at Discharge Cerebrovascular accident Inclusion Criteria At DC or during hospital stay patient has or had the following: CVA/TIA Diagnosis No Discharge Core Measures Meds if any: Prescribed or Continued at Discharge Meds if any: NOT Prescribed or Continued at Discharge Venous thromboembolism Inclusion Criteria VTE Diagnosis No VTE Type NONE VTE Confirmed by (Test) NONE Discharge Core Measures - Per Current guidelines, there needs to be overlap - treatment for the first 5 days of Warfarin therapy. - If discharged on Warfarin prior to 5 days of - overlap therapy, the patient will need to be - assessed for post discharge needs including - *Post discharge parental anticoagulation - *Warfarin and/or parental anticoagulation education - *Follow up date to check INR post discharge At least 5 days overlap therapy as Inpatient No Meds if any: Prescribed or Continued at Discharge Note: Overlap Therapy is Warfarin and Anticoagulant Meds if any: NOT Prescribed or Continued at Discharge
[2017-07-20] MEDS ORDERED: AZITHROMYCIN500 M3 PO (14:32)
[2017-07-20] MEDS ORDERED: TOPROL XL25 M1 PO (14:42)
[2017-07-20] MEDS ORDERED: SPIRIVA18 MCG INH (14:42)
[2017-07-20] MEDS ORDERED: GLUCOPHAGE500 M1 PO (14:42)
[2017-07-20] MEDS ORDERED: PREDNISONE10 M2 PO (14:42)
[2017-07-20] MEDS ORDERED: AZITHROMYCIN250 M1 PO (14:45)
[2017-07-20] MEDS ORDERED: DILTIAZEM 24HR180 MG PO (14:46)
[2017-07-20 16:00] VITALS: BP 150/72
[2017-07-20 22:00] VITALS: BP 152/88
[2017-07-21 06:31] LABS: ABSOLUTE BASOPHIL COUNT 0.1 /CUMM (0.0-0.2); ABSOLUTE EOSINOPHIL COUNT 0 /CUMM (0.0-0.7); ABSOLUTE GRANULOCYTE CT 11.1 /CUMM (1.4-6.5); ABSOLUTE LYMPH COUNT 1.3 /CUMM (1.2-3.4); ABSOLUTE MONOCYTE COUNT 0.8 /CUMM (0.10-0.60); BASOPHIL % 0.4 % (0.0-2.0); EOSINOPHIL % 0.1 % (0-5); GRANULOCYTE % 83.7 % (42.2-75.2); HEMATOCRIT 44.3 % (37-47); MEAN CORPUSCULAR HGB 28.5 PG (27.0-31.0); MEAN CORPUSCULAR HGB CONC 31.4 G/DL (33.0-37.0); MEAN CORPUSCULAR VOLUME 90.8 FL (81.0-99.0); MEAN PLATELET VOLUME 7.6 FL (7.4-10.4); PLATELET COUNT 232 /CUMM (130-400); RBC DISTRIBUTION WIDTH 15.5 % (11.5-14.5); RED BLOOD CELL CT 4.88 /CUMM (4.20-5.40)
[2017-07-21 07:07] LABS: WHITE BLOOD CELL COUNT 13.2 /CUMM (4.8-10.8)
[2017-07-21 08:00] VITALS: BP 160/70
--- NOTE | 2017-07-21 08:08 | PN- Housestaff ---
See Addendum Subjective Follow-up For: Acute on chronic hypoxic and hypercarbic respiratory failure Subjective: Ms Lucia was seen and examined this morning. She is resting comfortably on her bed. Currently undergoing pretreatment. Denies any issues overnight was able to rest. Feels better this morning. Shortness of breath improved. Denies any fever, chills, nausea, vomiting. States that she would like to be discharged sooner rather than later owing to the fact that she like to go to [place] with the [place]. Review of Systems Constitutional: Reports: see HPI. Objective Last 24 Hrs of Vital Signs/I&O Vital Signs Date Time Temp Pulse Resp B/P B/P Pulse O2 O2 Flow FiO2 Mean Ox Delivery Rate 07/21 0931 95 Nasal 3.0L Cannula 07/21 0800 95 Nasal 3.0L Cannula 07/21 08 97.6 65 22 160/70 96 Nasal 3.0L Cannula 07/21 0000 96 Nasal 3.0L Cannula 07/20 2200 98.1 76 20 152/88 96 Nasal 3.0L Cannula 07/20 1600 95 Nasal 3.0L Cannula 07/20 1600 97.8 70 20 150/72 95 Nasal 3.0L Cannula 07/20 1600 96 Nasal 3.0L Cannula Intake & Output 07/21 1600 07/21 0800 07/21 0000 Intake Total 200 120 Output Total 1800 1300 Balance -1600 -1180 Intake, IV 0 Intake, Oral 200 120 Number 1 Bowel Movements Output, Urine 1800 1300 Physical Exam General Appearance: Alert, Oriented X3, Cooperative HEENT: PERRLA, Mucous Membr. moist/pink Cardiovascular: Regular Rate, Normal S1, Normal S2 Lungs: Clear to Auscultation, Normal Air Movement Abdomen: Normal Bowel Sounds, Soft, No Tenderness Neurological: Normal Speech, Strength at 5/5 X4 Ext Extremities: No Edema Vascular: Normal Pulses Current Medications: Current Medications Sig/Ranjeet Start time Last Medication Dose Route Stop Time Status Admin Acetaminophen 650 MG Q6P PRN 07/18 1430 AC PO Al Hydroxide/Mg 30 ML ONCE ONE 07/21 0615 DC 07/21 Hydroxide PO 07/22 715 0725 Albuterol Sulfate 3 ML EVERY 4 HRS/AWAKE 07/19 0800 AC 07/21 INH 0847 Azithromycin 500 MG DAILY 07/21 09 DC PO Azithromycin 250 MG DAILY 05/13 0900 AC PO Azithromycin 250 MG ONCE ONE 07/20 1430 CAN PO 07/20 1431 Azithromycin 250 MG DAILY 07/19 0900 DC 07/20 PO 0823 Budesonide/ 2 PUF BID 07/19 1344 AC 07/20 Formoterol Fumarate INH 2106 Bupropion HCl 150 MG DAILY 07/19 0900 AC 07/20 PO 0823 Diltiazem HCl 180 MG DAILY 07/21 0900 AC PO Enoxaparin Sodium 40 MG DAILY 07/19 0900 AC 07/20 SC 0823 Furosemide 20 MG DAILY 07/19 1415 AC 07/20 PO 0823 Ibuprofen 600 MG Q6P PRN 07/18 1430 AC PO Ipratropium [place] 2.5 ML EVERY 4 HRS/AWAKE 07/19 0800 AC 07/21 INH 0848 Magnesium Hydroxide 30 ML ONE ONE 07/20 1600 DC 07/20 PO 07/20 1601 1557 Magnesium Oxide 400 MG BID 07/20 0900 DC 07/20 PO 07/20 2101 2106 Metformin HCl 500 MG 0800,1700 07/19 1700 AC 07/21 PO 0725 Metoprolol Succinate 25 MG DAILY 07/21 09 AC PO Metoprolol Succinate 50 MG DAILY 07/20 0900 DC 07/20 PO 0823 Morphine Sulfate 2 MG Q8P PRN 07/18 1515 AC IV Potassium Chloride 40 MEQ ONCE ONE 07/20 1130 CAN PO 07/20 1131 Prednisone 60 MG DAILY 07/21 09 AC PO Tiotropium [place] 1 PUF DAILY 07/19 1345 AC 07/20 INH 0823 Last 24 Hrs of Lab/Sean Results Last 24 Hrs of Labs/Mics: Laboratory Tests 07/21/17 0600: Magnesium 1.8, CBC w Diff NO MAN DIFF REQ, RBC 4.88, MCV 90.8, MCH 28.5, MCHC 31.4 L, RDW 15.5 H, MPV 7.6, Gran % 83.7 H, Lymphocytes % 9.5 L, Monocytes % 6.3, Eosinophils % 0.1, Basophils % 0.4, Absolute Granulocytes 11.1 H, Absolute Lymphocytes 1.3, Absolute Monocytes 0.8 H, Absolute Eosinophils 0, Absolute Basophils 0.1 07/20/17 1800: Sodium Cancelled, Potassium Cancelled, Chloride Cancelled, Carbon Dioxide Cancelled, Anion Gap Cancelled, BUN Cancelled, Creatinine Cancelled, Glucose Cancelled, Calcium Cancelled, Phosphorus Cancelled, Magnesium Cancelled, Total Bilirubin Cancelled, AST Cancelled, ALT Cancelled, Albumin Cancelled Assessment/Plan Assessment: Ms Lucia is a 66-year-old female with past medical history significant for COPD on 3 L O2, hypertension, bronchitis, who comes in for chief complaint of shortness of breath. She was found to be saturating 40% on room air by EMS and was given Solu-Medrol, magnesium and nebulizer treatment. In the ED her ABG showed pH 7.27 PCO2 76, and bicarb 34, she was transitioned from nasal cannula to BiPAP. Most likely etiology of her hypoxic and hypercarbic respiratory failure is her underlying COPD, lack of oxygen and her double dose of beta- abilio. However, her chest pain is concerning for ischemic heart disease she was ruled out for ACS. Problems: Respiratory #Acute on chronic hypoxic and hypercarbic respiratory failure with possible bronchial spasm from extra betablocker dose Patient has COPD on 3 L home oxygen. She is visiting her daughter from [facility] with using a travel oxygen tank and ran out of oxygen. She also has a history for chest pain for which she took a "Malaysian pill," which turns out to be propanolol 40 mg in addition to her metoprolol 100 mg. Initial ABG showed pH 7.27 PCO2 76, and bicarb 34 and she was placed on Bipap. Repeat ABG reavealed pH 7.32, PCO2 71, bicarbonate 36. She receieved ceftriaxone x1, nebs IV solumedrol 125mg and 2mg of mg. Urinary leigonella nad strep pneumo negative Echo revealed normal LVEF with pulm htn with estimated RV systolic pressure of 55 mmHg. Most likely her acute on chronic hypoxic and hypercarbic respiratory failure due to running out of oxygen with possible bronchial spasm from extra betablocker dose. -cont spiriva and symbicort -cont trc nebs -Continue 60mg prednisone tomorrow -pt takes azithromcin 250mg daily -Patient will require home oxygen, Case management contacted. -patient has imaging CT contianing PET? will require way to view it -incentive spirometer #nicotine dependence Continues to smoke but states 3-4 cigarrettes daily Counseled regarding emphysema and smoking. States that she previously had vivid dreams with varenicline. -Smoking cessation -cont wellbutrin Infection #leukocytosis ? Pna. Most likely 2/2 steroids Initial WBC 12.9. CXR: New hazy bibasilar opacities, pneumonia is not excluded. -Patient continues to have leukocytosis without fever. Most likely reactive leukocytosis and steroid induced. Received ceftriaxone x1 dose in ED -cont to monitor for signs of infection Cardiac #HTN -Continue BB at 25 mg. -restarted lasix 20 daily -pt states she doesnt take cardizem althought it is on her med list, we began this medication, as BP was elevated. Heme onc:none Metabolic #hyperglucosemia FS,285,118 . HgbA1c 7.0. No history of diabetes. -steroids are likely contributing to increased glucose -cont metformin, encouraged patient to follow up with PCP as outpatient. Alimentary:none Neuro: none House keeping FULL CODE DVT - prophylaxis LOVENOX Problem List: 1. COPD exacerbation 2. Respiratory failure 3. Blood glucose elevated Pain Ratin Pain Location: No Pain Pain Goal: Remain pain free Pain Plan: Tylenol PRN Tomorrow's Labs & Rationales: No Labs - Likely patient will be discharged.
[2017-07-21 09:42] VITALS: BP 150/70
[2017-07-21] MEDS ORDERED: SYMBICORT 16010.2 GM INH ×2 (10:16→11:36)
--- NOTE | 2017-07-21 10:20 | PN- Pulmonary ---
Subjective HPI/Critical Care Issues: Ms Lucia was seen and examined this morning. She is resting comfortably on her bed. Currently undergoing pretreatment. Denies any issues overnight was able to rest. Feels better this morning. Shortness of breath improved. Denies any fever, chills, nausea, vomiting. States that she would like to be discharged sooner rather than later owing to the fact that she [place] to [place]. Review of Systems Constitutional: Reports: see HPI. Objective Current Medications: Current Medications Sig/Ranjeet Start time Last Medication Dose Route Stop Time Status Admin Acetaminophen 650 MG Q6P PRN 07/18 1430 AC PO Al Hydroxide/Mg 30 ML ONCE ONE 07/21 0715 DC 07/21 Hydroxide PO 07/21 0716 0725 Albuterol Sulfate 3 ML EVERY 4 HRS/AWAKE 07/19 0800 AC 07/21 INH 0847 Azithromycin 500 MG DAILY 07/21 0900 DC PO Azithromycin 250 MG DAILY 07/21 0900 AC 07/21 PO 0942 Azithromycin 250 MG ONCE ONE 07/20 1430 CAN PO 07/20 1431 Azithromycin 250 MG DAILY 07/19 0900 DC 07/20 PO 0823 Budesonide/ 2 PUF BID 07/19 1344 AC 07/21 Formoterol Fumarate INH 0943 Bupropion HCl 150 MG DAILY 07/19 0900 AC 07/21 PO 0942 Diltiazem HCl 180 MG DAILY 07/21 0900 AC 07/21 PO 0942 Enoxaparin Sodium 40 MG DAILY 07/19 0900 AC 07/21 SC 0942 Furosemide 20 MG DAILY 07/19 1415 AC 07/21 PO 0942 Ibuprofen 600 MG Q6P PRN 07/18 1430 AC PO Ipratropium [place] 2.5 ML EVERY 4 HRS/AWAKE 07/19 0800 AC 07/21 INH 0848 Magnesium Hydroxide 30 ML ONE ONE 07/20 1600 DC 07/20 PO 07/20 1601 1557 Magnesium Oxide 400 MG BID 07/20 0900 DC 07/20 PO 07/20 2101 2106 Metformin HCl 500 MG 0800,1700 05/ 1700 AC 07/21 PO 0725 Metoprolol Succinate 25 MG DAILY 07/21 0900 AC 07/21 PO 0942 Metoprolol Succinate 50 MG DAILY 07/20 0900 DC 07/20 PO 0823 Morphine Sulfate 2 MG Q8P PRN 07/18 1515 AC IV Potassium Chloride 40 MEQ ONCE ONE 07/20 1130 CAN PO 07/20 1131 Prednisone 60 MG DAILY 07/21 0900 AC 07/21 PO 0942 Tiotropium [place] 1 PUF DAILY 07/19 1345 AC 07/21 INH 0942 Vital Signs & I&O Last 24 Hrs of Vitals and I&O: Vital Signs Date Time Temp Pulse Resp B/P B/P Pulse O2 O2 Flow FiO2 Mean Ox Delivery Rate 07/21 0942 65 150/70 07/21 0931 95 Nasal 3.0L Cannula 07/21 0800 95 Nasal 3.0L Cannula 07/21 0800 97.6 65 22 160/70 96 Nasal 3.0L Cannula 07/21 0000 96 Nasal 3.0L Cannula 07/20 2200 98.1 76 20 152/88 96 Nasal 3.0L Cannula 07/20 1600 95 Nasal 3.0L Cannula 07/20 1600 97.8 70 20 150/72 95 Nasal 3.0L Cannula 07/20 1600 96 Nasal 3.0L Cannula Intake & Output 07/21 1600 07/21 0800 07/21 0000 Intake Total 200 120 Output Total 1800 1300 Balance -1600 -1180 Intake, IV 0 Intake, Oral 200 120 Number 1 Bowel Movements Output, Urine 1800 1300 Impression/Plan Impression/Plan Impression/Plan: General Appearance: alert, awake, severe distress Head: atraumatic Eyes: Bilateral: normal appearance. Ears, Nose, Throat: hearing grossly normal Neck: normal inspection Respiratory: decreased breath sounds, rhonchi, wheezing, respiratory distress ( moderate/severe) Cardiovascular: regular rate/rhythm Extremities: normal inspection Neurologic/Psych: awake, alert Skin: intact, normal color Cxr FINDINGS: The cardiac silhouette remains minimally enlarged. There is uncoiling of the thoracic aorta. There are hazy bibasilar opacities. These were not seen on the prior examination and may represent an infectious process. No pleural effusion or pneumothorax. Degenerative changes of the shoulders. IMPRESSION: New hazy bibasilar opacities. Pneumonia is not excluded. IMPRESSION 66 y/o lady with clinically has severe copd with * Resolved Acute hypercarbic and hypoxic resp failure due to copde compounded by bilateral infiltrates rule out pna * On going smoking * HTN * Depression * On high dose betablocker which is compounding the issue * LBA on lidoderm patches * Has multiple other medical issues need to get old records REC * Starts Spiriva1 puff daily * Symbicort 2 puffs twice a day * Metformin for DM * 50 mg of prednisone and to wean off * Change to prn nebs * Continue current medications * Restart dilt * Reduce metoprolol to 25 qd * Cont bupropion Stable to be dcd and direct care worker to see the patient to arrange portable oxygen for her to return home ([employer])
[2017-07-21] MEDS ORDERED: TOPROL XL25 M1 PO (11:36)
[2017-07-21] MEDS ORDERED: GLUCOPHAGE500 M1 PO (11:36)
[2017-07-21] MEDS ORDERED: PREDNISONE10 M2 PO ×2 (11:36→11:39)
[2017-07-21] MEDS ORDERED: SPIRIVA18 MCG INH (11:36)
--- NOTE | 2017-07-21 15:28 | Event Note ---
Event Note Event Note: S: Despite multiple attempts, case management have been unsuccessful to have oxygen delivered to the patient prior to discharge. Patient has been waiting since early this morning for oxygen to be brought to the hospital in order for her to be discharged. B: Ms Lucia is a 66-year-old female with past medical history significant for COPD on 3 L O2, hypertension, bronchitis, who comes in for chief complaint of shortness of breath. She was found to be saturating 40% on room air by EMS and was given Solu-Medrol, magnesium and nebulizer treatment. She has since been treated and was hoping for a discharge later this morning. A/R: I Attempted to explain the situation to the patient however she had made up her mind that she would like to leave AGAINST MEDICAL ADVICE. It was made to clear to her that she may have suffer serious consequences especially as it relates to her breathing however she insisted that she would like to be discharged AGAINST MEDICAL ADVICE. Her daughter was present during the time of our conversation. food processing plant manager also informed her of the potantial risks, but she was not willing to comply in extending her stay till the oxygen was brought. Attending physician was also informed.
--- NOTE | 2017-07-22 10:11 | Discharge Summary ---
Visit Information Visit Dates Admission Date: 07/18/17 Discharge Date: 07/21/17 Hospital Course Course Attending Physician: Liz Clark MD Primary Care Physician: Unknown Hospital Course: Asessment: 66-year-old female with past medical history significant for COPD on 3 L O2, hypertension, bronchitis, who comes in for chief complaint of shortness of breath and chest pain. She was found to be saturating 40% on room air by EMS and was given Solu-Medrol, magnesium and nebulizer treatment. In the ED her ABG showed pH 7.27 PCO2 76, and bicarb 34, she was transitioned from nasal cannula to BiPAP. Most likely etiology of her hypoxic and hypercarbic respiratory failure is her underlying COPD, lack of oxygen and her double dose of beta- abilio. However, her chest pain is concerning for ischemic heart disease and she was ruled out for ACS. Problems: #Acute on chronic hypoxic and hypercarbic respiratory failure with possible bronchial spasm from extra betablocker dose Patient has COPD on 3 L home oxygen. She is visiting her daughter from [facility] with using a travel oxygen tank and ran out of oxygen. She also has a history for chest pain for which she took a "Slovenian pill," which turns out to be propanolol 40 mg in addition to her metoprolol 100 mg. Initial ABG showed pH 7.27 PCO2 76, and bicarb 34 and she was placed on Bipap. Repeat ABG reavealed pH 7.32, PCO2 71, bicarbonate 36. She receieved ceftriaxone x1, nebs IV solumedrol 125mg and 2mg of mg. Urinary leigonella and strep pneumo were negative. We continued her daily azithromycin, and symbicort. She was started on Spiriva. Echo revealed normal LVEF with pulm htn with estimated RV systolic pressure of 55 mmHg. Most likely her acute on chronic hypoxic and hypercarbic respiratory failure due to running out of oxygen with possible bronchial spasm from extra betablocker dose. For discharge she was transitioned to by mouth prednisone taper. Was advised to continue daily prednisone after completion of taper. She also required continous home oxygen. Case managment tried to arrange for home oxygen including portable tank. Unfortunately it was not possible on Saturday and patient did not want to wait for another day. The patient decided to leave AMA and did not want to wait for oxygen. #leukocytosis ? Pna. Most likely 2/2 steroids Initial WBC 12.9. CXR: New hazy bibasilar opacities, pneumonia is not excluded. Patient had leukocytosis without fever. Most likely reactive leukocytosis and steroid induced. Received ceftriaxone x1 dose in ED. #HTN Restarted metoprolol @50mg daily though her home dose is 100. Reduced dose to 25 as her BP and HR are well controlled. Also continued her home lasix. Restart her cardizem for discharge. #Hyperglucosemia, ?Diabetes. Blood sugars 200-300s. HgbA1c 7.0. No history of diabetes. Started on Metformin. #Imaging The patient brought a CD which contained imaging. Was unable to view. Will require outpatient followup. #nicotine dependence Continues to smoke but states she has decreased to 3-4 cigarrettes daily. Counseled regarding emphysema and smoking. States that she previously had vivid dreams with varenicline. Continued wellbutrin during admission Allergies: Coded Allergies: No Known Allergies (03/10/17) Significant Procedures: EXAM TYPE: CARD - ECHOCARDIOGRAM ROSS MARRUFO Age: 66 : 1950 Gender: F Exam Date: 07/18/2017 16:22 Exam Location: [facility] Ht (in): 62 Wt (lb): 138 BSA: 1.67 BP: 132 / 60 Ordering Physician: Felicia Negro MD Referring Physician: Felicia Negro MD Technologist: Hermelinda Corrales CORAL Room Number: 111 Indications: CHEST PAIN Rhythm: Sinus Technical Quality: Fair FINDINGS Left Ventricle Normal size left ventricle. No obvious regional wall motion abnormalities. Left ventricular wall thickness increased. Normal left ventricular ejection fraction estimated at 55-60%. Right Ventricle Mild right ventricular dilatation. Right Atrium Mild right atrial dilatation. Left Atrium Mild left atrial dilatation. Mitral Valve Mitral valve thickened. Mild mitral annular calcification. Trace mitral regurgitation. Aortic Valve Trileaflet aortic valve. Diffuse thickening (sclerosis) of the aortic valve cusps without reduced excursion. No aortic stenosis. No aortic regurgitation. Tricuspid Valve Tricuspid valve not well visualized, grossly normal. Mild tricuspid regurgitation. Right ventricular systolic pressure estimated to be elevated at 55 mmHg. Pulmonic Valve Pulmonic valve not well visualized, grossly normal. Trace to mild pulmonic regurgitation. Pericardium Great Vessels Aortic root and proximal ascending aorta not well visualized, grossly normal. CONCLUSIONS 1. Mild aortic sclerosis is present with no valvular stenosis or insufficiency. 2. Mitral leaflet thickening is present with mild anular calcification and minimal mitral insufficiency with mid left atrial enlargement. 3. A very small pericardial effusion is present which is hemodynamically insignificant. 4. The left ventricular chamber size is normal with borderline to mild concentric hypertrophy and a normal ejection fraction with no resting wall motion abnormalities. 5. Mild enlargement of the right heart chambers is present with moderator band hypertrophy and mild tricuspid and pulmonic insufficiency with pulmonary hypertension and an estimated RV systolic pressure of 55 mmHg. Disposition Summary Disposition Principal Diagnosis: Acute on chronic hypoxic and hypercarbic respiratory failure with possible bronchial spasm from extra betablocker dose Additional Diagnosis: Hyperglucosemia with questionable diabetes Discharge Disposition: left against medical adv Discharge Instructions General Discharge Information Code Status: Full Code Patient's Diet: Diabetic Patient's Activity: As tolerated Follow-Up Instructions/Appts: Please follow up with your PCP and pulmnologist Medications at Discharge Discharge Medications: Stop taking the following medications: Fluticasone/Salmeterol (Advair 250-50 Diskus) (Unknown Strength) BLST.W.DEV Inhale through mouth TWICE DAILY Cefuroxime Axetil (Cefuroxime) 500 MG TABLET ORAL TWICE DAILY Qty = 14 Metoprolol Succinate (Metoprolol Succinate) 100 MG TAB.ER.24H ORAL DAILY Qty = 30 Continue taking these medications: Albuterol Sulfate (Ventolin Hfa) 90 MCG HFA.AER.AD 2 Puff Inhale through mouth As Directed as needed for RESP. Comments: RECIEVED NEBULIZER TREATMENTS IN HOSPITAL Furosemide (Furosemide) 20 MG TABLET 1 Tablet ORAL DAILY Qty = 30 Comments: Last Taken:07/21/17 Time:09 NEXT DOSE TOMORROW Bupropion HCl (Bupropion HCl Sr) 150 MG TABLET.ER 1 Tablet ORAL DAILY Qty = 30 Comments: Last Taken:07/21/17 Time:09 NEXT DOSE TOMORROW Albuterol Sulfate (Albuterol Sulfate) 2 MG/5 ML SYRUP 5 Milliliters ORAL 4 TIMES A DAY Qty = 300 Comments: RECIEVED NEBULIZER TREATMENTS IN HOSPITAL Prednisone (Prednisone) 10 MG TABLET 1 Tablet ORAL DAILY Qty = 60 Comments: Last Taken:07/21/17 Time:0930 Azithromycin (Azithromycin) 250 MG TABLET 1 Tablet ORAL DAILY Qty = 30 Comments: Last Taken:07/21/17 Time:0930 NEXT DOSE TOMORROW Diltiazem HCl (Diltiazem 24HR ER) 180 MG CAP.ER.24H 1 Capsule ORAL DAILY Qty = 30 Comments: Last Taken:07/21/17 Time:0930 NEXT DOSE TOMORROW Budesonide/Formoterol Fumarate (Symbicort 160-4.5 Mcg Inhaler) 160 MCG-4.5 MCG/ ACTUATION HFA.AER.AD 2 Puff Inhale through mouth TWICE DAILY Qty = 1 Instructions: . Comments: Last Taken:07/21/17 Time:0930 NEXT DOSE TONIGHT This prescription has been renewed Start taking the following new medications: Metoprolol Succ XL (Toprol XL) 25 MG TAB 1 Milligram ORAL DAILY Qty = 30 No Refills Instructions: . Comments: Last Taken:07/21/17 Time:0930 NEXT DOSE TOMORROW Tiotropium [place] (Spiriva) 18 MCG CAP.W.DEV 1 Puff Inhale through mouth DAILY Qty = 1 No Refills Instructions: . Comments: Last Taken:07/21/17 Time:0930 NEXT DOSE TOMORROW Prednisone (Prednisone) 10 MG TABLET 0 ORAL DAILY Qty = 40 No Refills Instructions: DATE #TAB 07/22- 5 07/24- 4 07/27- 3 07/30- 2 08/02- 1 Comments: Last Taken:07/21/17 Time:0930 RESUME 10MG DAILY TABLET AFTER FINISHING TAPER Metformin Hydochloride (Glucophage) 500 MG TABLET 1 Tablet ORAL 0800,1700 Qty = 60 No Refills Comments: Last Taken:07/21/17 Time:0800 NEXT DOSE TONIGHT AT 5PM Budesonide/Formoterol Fumarate (Symbicort 160-4.5 Mcg Inhaler) 160 MCG-4.5 MCG/ ACTUATION HFA.AER.AD 2 Puff Inhale through mouth TWICE DAILY Qty = 1 No Refills Comments: Last Taken:07/21/17 Time:0930 NEXT DOSE TONIGHT Copies To: UNKNOWN
== END 2017-07-21 15:15 | disposition left against medical advice (07) | DRG 189 ==
LOC: ERH 10:33 → CRI 12:13 → ERHI 12:13 → ENRESERV 14:10 → ENTRNSPT 14:32 → EDTRNSPTSTS 14:37 → EDTRNSPT 14:38 → CRI 14:49 → CMPTRNSPT 14:55 → CRI 07-21 15:15
PROVIDERS: Physician Assistant Medical; Student in an Organized Health Care Education/Training Program
PROC: 5A09357 Assistance with Respiratory Ventilation, Less than 24 Consecutive Hours, Continuous Positive Airway Pressure (ICD-10-PCS; principal; 2017-07-18)
DX: J96.21 Acute and chronic respiratory failure with hypoxia (principal); J44.1 Chronic obstructive pulmonary disease with (acute) exacerbation; Z99.81 Dependence on supplemental oxygen; J98.01 Acute bronchospasm; J96.22 Acute and chronic respiratory failure with hypercapnia; F17.210 Nicotine dependence, cigarettes, uncomplicated; F32.9 Major depressive disorder, single episode, unspecified; T44.7X5A Adverse effect of beta-adrenoreceptor antagonists, initial encounter; R73.9 Hyperglycemia, unspecified; R07.9 Chest pain, unspecified; I10 Essential (primary) hypertension
CPT/HCPCS: CCU; 36415; 36592; 71045; 80307; 82436; 87040; 87070; 87449; 87450; 93005; 93010; 93306; 96374; 99291; J0456; J0696; J1650; J2920; J3490; J7040; J7508

== ENCOUNTER 2017-12-03 20:53 | Inpatient (IN) | payer OTHER ==
[~2017-12-03] VITALS: Ht 157.5 cm; Wt 67.1 kg
[~2017-12-03 20:53] MED LIST changes: +ALBUTEROL S2 MG/5 M1 PO; +AZITHROMYCIN250 M1 PO; +AZITHROMYCIN500 M3 PO; +BUPROPION HCL150 M4 PO; +CARDIZEM CD240 M1 PO; +CEFUROXIME500 MG PO; +DILTIAZEM 24HR240 MG PO; +FUROSEMIDE20 M1 PO; +GLUCOPHAGE500 M1 PO; +METOPROLOL SUC100 M2 PO; +PREDNISONE10 M2 PO; +SPIRIVA18 MCG INH; +SYMBICORT 16010.2 GM INH; +TOPROL XL25 M1 PO
--- NOTE | 2017-12-03 21:12 | ED DYSPNEA/ASTHMA COMPLAINT ---
History of Present Illness General Chief Complaint: Dyspnea (COPD, CHF, Other) Stated Complaint: SOB, X 3 DAYS Source: patient, family Exam Limitations: no limitations Vital Signs & Intake/Output Vital Signs & Intake/Output Vital Signs Date Time Temp Pulse Resp B/P B/P Pulse O2 O2 Flow FiO2 Mean Ox Delivery Rate 12/03 2325 100.6 82 18 133/68 94 Room Air 12/03 2153 Non 10L ReBreather 12/04 2151 101.9 82 28 135/70 99 Room Air 12/03 2148 98 Non 100% ReBreather Allergies Coded Allergies: No Known Allergies (03/10/17) Reconcile Medications Albuterol Sulfate (Ventolin Hfa) 90 MCG HFA.AER.AD 2 PUF INH AD PRN RESP. ( Reported) Albuterol Sulfate 2 MG/5 ML SYRUP 5 ML PO 4 TIMES/DAY BREATHING PROBLEMS ( Reported) Azithromycin 250 MG TABLET 1 TAB PO DAILY COPD (Reported) Budesonide/Formoterol Fumarate (Symbicort 160-4.5 Mcg Inhaler) 160 MCG-4.5 MCG/ ACTUATION HFA.AER.AD 2 PUF INH BID SOB Budesonide/Formoterol Fumarate (Symbicort 160-4.5 Mcg Inhaler) 160 MCG-4.5 MCG/ ACTUATION HFA.AER.AD 2 PUF INH BID SOB . Bupropion HCl (Bupropion HCl Sr) 150 MG TABLET.ER 1 TAB PO DAILY MENTAL HEALTH (Reported) Diltiazem HCl (Diltiazem 24HR ER) 180 MG CAP.ER.24H 1 CAP PO DAILY CARDIAC ( Reported) Furosemide 20 MG TABLET 1 TAB PO DAILY WATER RETENTION (Reported) Metformin Hydochloride (Glucophage) 500 MG TABLET 1 TAB PO 0800,1700 BLOOD SUGAR Metoprolol Succ XL (Toprol XL) 25 MG TAB 1 MG PO DAILY blood pressure . Prednisone 10 MG TABLET 1 TAB PO DAILY COPD (Reported) Prednisone 10 MG TABLET 0 PO DAILY COPD DATE #TAB 07/22- 5 07/24-18 4 07/27- 3 07/30- 2 08/02- 1 Tiotropium [place] (Spiriva) 18 MCG CAP.W.DEV 1 PUF INH DAILY COPD . Triage Nurses Notes Reviewed? yes Onset: Gradual Duration: day(s): Timing: recent history Severity: moderate Activities at Onset: none Prior Episodes/Possible Cause: occasional episodes Associated Symptoms: cough, wheezing HPI: 66 yo woman h/o copd presents with 3 days of dyspnea, cough, shortness of breath, with mild sputum, getting worse. She notes no fever, chills, lower extremity swelling, chest pain. Upon arrival, 02 sat 60% on room air. She was brought immediately to a room. Past History Travel History Traveled to [place] past 21 day No Medical History Any Pertinent Medical History? 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 No Review of Systems Review of Systems Constitutional: Reports: no symptoms. EENTM: Reports: no symptoms. Respiratory: Reports: no symptoms. Cardiovascular: Reports: no symptoms. GI: Reports: no symptoms. Genitourinary: Reports: no symptoms. Musculoskeletal: Reports: no symptoms. Skin: Reports: no symptoms. Neurological/Psychological: Reports: no symptoms. Hematologic/Endocrine: Reports: no symptoms. Immunologic/Allergic: Reports: no symptoms. All Other Systems: Reviewed and Negative Physical Exam Physical Exam General Appearance: well developed/nourished, moderate distress, severe distress Head: atraumatic, normal appearance Eyes: Bilateral: normal appearance. Ears, Nose, Throat: normal pharynx, normal ENT inspection Neck: normal inspection, supple, full range of motion Respiratory: decreased breath sounds, accessory muscle use, wheezing Cardiovascular: regular rate/rhythm Gastrointestinal: normal bowel sounds, soft, non-tender, no organomegaly Extremities: normal inspection, normal capillary refill, no edema Neurologic/Psych: no motor/sensory deficits, awake, alert, oriented x 3 Skin: intact, normal color, warm/dry Core Measures ACS in differential dx? No CVA/TIA Diagnosis No Sepsis Present: No Sepsis Focused Exam Completed? No Progress Differential Diagnosis: asthma, bronchitis, CHF, COPD, pneumonia Plan of Care: Orders Procedure Date/time Status Nothing by Mouth 12/04 B Active Patient Data 09/25 2257 Active Saline Lock 12/03 2237 Active Misc Message 12/03 2237 Active ED Holding Orders 12/03 2237 Active Admit to inpatient 12/03 2237 Active Vital Signs 12/03 2237 Active Code Status 12/03 2237 Active Intake & Output 12/03 2144 Active Add-on Test (ER Only) 12/04 2131 Active LACTIC ACID 12/04 2119 Complete B-TYPE NATRIURETIC PEP (BNP) 12/04 2119 Complete BLOOD CULTURE 12/03 2114 Active ARTERIAL BLOOD GAS (GEN) 12/03 2113 Complete BLOOD CULTURE 12/03 2113 Active TROPONIN LEVEL 12/04 2103 Complete LIPASE 12/04 2103 Complete HEPATIC FUNCTION PANEL 12/04 2103 Complete D-DIMER 12/04 2103 Complete CBC WITHOUT DIFFERENTIAL 12/04 2103 Complete BASIC METABOLIC PANEL 12/04 2103 Complete AMYLASE 12/04 2103 Complete EKG 12/03 2053 Active Current Medications Sig/Ranjeet Start time Last Medication Dose Stop Time Status Admin Magnesium Sulfate 1 GM ONCE ONE 12/03 2114 AC 12/03 (Mag Sulfate in D5) 12/04 Dextrose/Water 100 ML (D5W) Laboratory Tests 12/03/172214: pH 7.40, pCO2 46 H, pO2 125 H, HCO3 27, ABG O2 Sat (Measured) 97.0, P-50 (Temp Corrected) Y, Carboxyhemoglobin 0.7 L, O2 Concentration % 7L, Temperature 101.9 H, O2 Delivery Method NEB, Phlebotomy Draw Site RIGHT RADIAL 12/03/172119: Anion Gap 8, Estimated GFR > 60, BUN/Creatinine Ratio 20.0, Glucose 181 H, Lactic Acid 1.0, Calcium 8.7, Total Bilirubin 1.4 H, Direct Bilirubin 0.6 H, AST 42 H, ALT 41, Alkaline Phosphatase 69, Troponin I 0.01, Tak-L-Ohcwkqgqixw Pept 936 H, Total Protein 7.0, Albumin 3.8, Amylase 53, Lipase 76, D-Dimer High Sensitivty 684 H, CBC w Diff MAN DIFF ORDERED, RBC 4.43, MCV 91.8, MCH 31.0, MCHC 33.8, RDW 13.6, MPV 8.0, Segmented Neutrophils 12 L, Band Neutrophils 14 H, Lymphocytes 30, Monocytes 42 H, Eosinophils 1, Basophils 1, Platelet Estimate ADEQUATE, Polychromasia 1+ 12/03/172113: Uwq-J-Irlcjhbiqjq Pept Cancelled Microbiology 12/03 2137 BLOOD: Blood Culture - RECD 12/04 2127 BLOOD: Blood Culture - RECD Diagnostic Imaging: Viewed by Me: Radiology Read. Discussed w/RAD: Radiology Read. CXR Impression: PATIENT: ROSS MARRUFO PRESENT AGE: 66 PATIENT ACCOUNT NO: [id number] : 50 LOCATION: [facility] ORDERING PHYSICIAN: Rhett Pedersen MD SERVICE DATE: 12/03/17 EXAM TYPE: RAD - XRY- PORTABLE CHEST XRAY EXAMINATION: XR PORTABLE CHEST CLINICAL INFORMATION: Shortness of breath COMPARISON: Chest x-ray 07/18/2017 TECHNIQUE: Portable frontal view of the chest was obtained. FINDINGS: Cardiac silhouette is normal in size. Lungs are adequately aerated. Interval development of subtle patchy opacity within the lateral left upper lobe. Minimal peribronchial thickening of the left upper lobe. No pleural effusion. No pneumothorax. IMPRESSION: Interval development of subtle patchy opacity within the lateral left upper lobe. With provided history, this likely represents pneumonia. Follow-up imaging recommended status post treatment to ensure complete resolution. DICTATED BY: Cleveland Mast MD DATE/TIME DICTATED:12/03/172137 ADMINISTRATIVE JUDGE:GLORIA DATE/TIME TRANSCRIBED:12/03/172137 CONFIDENTIAL, DO NOT COPY WITHOUT APPROPRIATE AUTHORIZATION. <Electronically signed in Other Vendor System> SIGNED BY: Cleveland Mast MD 12/03/172143, PATIENT: ROSS MARRUFO PRESENT AGE: 66 PATIENT ACCOUNT NO: [id number] : 50 LOCATION: [facility] ORDERING PHYSICIAN: Rhett Pedersen MD SERVICE DATE: EXAM TYPE: CAT - CTA CHEST-PULMONARY EMBOLISM EXAMINATION: CT ANGIOGRAM OF THE CHEST WITH AND WITHOUT CONTRAST (CT PULMONARY ANGIOGRAM FOR PE) CLINICAL INFORMATION: Reason for Study:
Presumptive Dx: dyspnea
Signs Symptoms: +dimer
COMPARISON: Same day chest radiograph TECHNIQUE: Prior to contrast administration, noncontrast localization images were obtained. Subsequently, multidetector volumetric imaging was performed from the thoracic inlet to below the diaphragms following the administration of 80 mL Omnipaque 350 intravenous contrast. No contrast reaction reported. Sagittal, coronal, and MIP oblique sagittal reformatted images were obtained on the CT workstation, uploaded to PACS, and reviewed. Total exam dose-length product 292 mGy-cm. FINDINGS: QUALITY OF STUDY/CONTRAST BOLUS: Satisfactory PULMONARY ARTERIES: No central or segmental pulmonary emboli. THORACIC AORTA: No aneurysm or dissection. LUNG: Multifocal areas of groundglass and ill-defined nodular consolidation is seen involving the bilateral lungs, particularly in the left upper lobe, most compatible with multifocal pneumonia. Additional cluster of ill -defined nodular densities are seen for example in the right middle lobe (series 2, image 317). There is mild intralobular septal thickening at the lung bases and left upper lobe. There is a background of emphysematous changes. Calcified subpleural granuloma seen at the right lung apex. Central airways are patent. There is diffuse bronchial wall thickening. PLEURA: No pleural effusion or pneumothorax. MEDIASTINUM: Normal heart size. No pericardial effusion. Coronary artery calcifications noted. A few mildly prominent mediastinal and hilar lymph nodes are seen, nonspecific, possibly reactive in etiology. An index right hilar node measures 2.0 x 1.8 cm (series 2, image 202). No evidence of septal bowing or right heart strain. CHEST WALL/AXILLA: No axillary or internal mammary lymphadenopathy. Punctate metallic densities seen within the right breast parenchyma; correlate for history of biopsy clips. OSSEOUS STRUCTURES: No acute or suspicious osseous abnormality. UPPER ABDOMEN: Small hiatal hernia. No reflux of contrast into the hepatic veins to suggest elevated right heart pressures. IMPRESSION: No evidence of central or segmental pulmonary embolism. Multifocal areas of nodular consolidation and groundglass opacities throughout the bilateral lungs is most compatible with multifocal pneumonia. Mildly prominent mediastinal and hilar lymph nodes, presumably reactive in etiology. Short-term interval follow-up with repeat CT chest in 4-6 weeks following therapy is recommended to ensure resolution and exclude underlying malignancy. Mild interlobular septal thickening is nonspecific, though may reflect mild interstitial edema. Emphysematous changes. DICTATED BY: Kostas Ernandez MD DATE/ TIME DICTATED:12/03/172314 ADMINISTRATIVE JUDGE:GLORIA DATE/TIME TRANSCRIBED: 12/03/172314 CONFIDENTIAL, DO NOT COPY WITHOUT APPROPRIATE AUTHORIZATION. < Electronically signed in Other Vendor System> SIGNED BY: Kostas Ernandez MD 12/03/17 3374 Initial ED EKG: sinus, non specific st changes.... no significant change from prior Departure Departure Disposition: STILL A PATIENT Condition: Stable Clinical Impression Primary Impression: COPD exacerbation Referrals: Patient Has No Primary Care Dr (PCP/Family) Departure Forms: Customer Survey General Discharge Information Admission Note Spoke With: Ghulam Payton MD Documentation of Exam: Documentation of any treatments & extenuating circumstances including Concerns Regarding Discharge (functional status, medication knowledge or non-compliance, living conditions, etc.) that warrant an admission rather than observation: pt with copd, 02 sat 60% upon arrival, improving after continuous nebs, magnesium sulfate, 100% Fio2, now improved on nasal cannula with well compensated abg, merits iv abx, steroids , 02 support. Critical Care Note Critical Care Note Critical Care Time: 30-74 min Comments: continuous nebs, magnesium sulfate
[2017-12-03 21:33] LABS: HEMATOCRIT 40.7 % (37-47); MEAN CORPUSCULAR HGB CONC 33.8 G/DL (33.0-37.0); MEAN CORPUSCULAR VOLUME 91.8 FL (81.0-99.0); PLATELET COUNT 228 /CUMM (130-400); RBC DISTRIBUTION WIDTH 13.6 % (11.5-14.5); RED BLOOD CELL CT 4.43 /CUMM (4.20-5.40); WHITE BLOOD CELL COUNT 9.8 /CUMM (4.8-10.8)
--- NOTE | 2017-12-03 21:44 | RADIOLOGY REPORT ---
EXAMINATION: XR PORTABLE CHEST CLINICAL INFORMATION: Shortness of breath COMPARISON: Chest x-ray 07/18/2017 TECHNIQUE: Portable frontal view of the chest was obtained. FINDINGS: Cardiac silhouette is normal in size. Lungs are adequately aerated. Interval development of subtle patchy opacity within the lateral left upper lobe. Minimal peribronchial thickening of the left upper lobe. No pleural effusion. No pneumothorax. IMPRESSION: Interval development of subtle patchy opacity within the lateral left upper lobe. With provided history, this likely represents pneumonia. Follow-up imaging recommended status post treatment to ensure complete resolution.
--- NOTE | 2017-12-03 23:00 | History & Physical ---
Ansley Pedersen 12/03/17 4819: General Information and HPI MD Statement: I have seen and personally examined ROSS MARRUFO and documented this H&P. The patient is a 66 year old F who presented with a patient stated chief complaint of weakness. History of Present Illness: Ms. Marrufo is a 66 year old female with PMH of COPD on baseline 3L home O2 ( chronic smoker quit August 2017 after smoking 1/2 pack a day for 40 years), diabetes mellitus, hypertension who presented to the ED for shortness of breath. Patient states she "couldnt walk" and was brought in concern by her daughter. She noticed this yesterday with associated non-productive cough. Patient denied any symptoms of fevers, chills, nausea, vomiting, diarrhea, chest pain or shortness of breath. She also denied sick contact at home. Patient states she has home oxygen in her home in [place], however she has finished her portable oxygen equipment while at her [facility] home. Last used the home oxygen 1 week ago. She follows up with a burrito maker Dr. Cevallos who she saw 1 month ago. Patient denies any recent travel, pets at home and does not work. Quit smokign August 2017 after smoking half a pack a day for 40 years. No significant alcohol use or illicit drug use noted. States she has an allergy to doxycycline but does not know what happens whens he takes it. Last Discharge July 2017 patient left AMA and did not want to wait for oxygen over a weekend. PCP: Dr. Torres Apparel Sales Leader: Dr. Cevallos (last seen 1 month ago) Allergies/Medications Allergies: Coded Allergies: No Known Allergies (03/10/17) Home Med list Albuterol Sulfate (Ventolin Hfa) 90 MCG HFA.AER.AD 2 PUF INH AD PRN RESP. ( Reported) Albuterol Sulfate 2 MG/5 ML SYRUP 5 ML PO 4 TIMES/DAY BREATHING PROBLEMS ( Reported) Atorvastatin Calcium 10 MG TABLET 1 TAB PO DAILY HEART (Reported) Diltiazem HCl (Diltiazem 24HR ER) 240 MG CAP.ER.24H 1 CAP PO DAILY HEART ( Reported) Fluticasone/Vilanterol (Breo Ellipta 200-25 Mcg INH) 200 MCG-25 MCG/DOSE BLST.W.DEV 1 PUF INH DAILY COPD (Reported) Furosemide 20 MG TABLET 1 TAB PO DAILY WATER RETENTION (Reported) Metformin Hydochloride (Glucophage) 500 MG TABLET 1 TAB PO 0800,1700 BLOOD SUGAR Prednisone 10 MG TABLET 1 TAB PO DAILY COPD (Reported) Past History Travel History Traveled to [place] past 21 day No Medical History Neurological: NONE EENT: NONE Cardiovascular: hypertension Respiratory: bronchitis, COPD Gastrointestinal: NONE Hepatic: NONE Renal: NONE Musculoskeletal: NONE Psychiatric: NONE Endocrine: NONE Blood Disorders: NONE Cancer(s): NONE PERFORATOR/Reproductive: NONE History of MRSA: No History of VRE: No History of CDIFF: No Surgical History Surgical History: non-contributory Past Family/Social History Psychosocial History Services at Home: Oxygen Functional Ability ADLs Independent: dressing, eating, toileting, bathing. Ambulation: independent IADLs Independent: shopping, housework, finances, food prep, telephone, transportation , medication admin. Review of Systems Review of Systems Constitutional: Denies: see HPI. Exam & Diagnostic Data Last 24 Hrs of Vital Signs/I&O Vital Signs Date Time Temp Pulse Resp B/P B/P Pulse O2 O2 Flow FiO2 Mean Ox Delivery Rate 12/04 0037 98.6 80 20 126/62 92 12/04 0025 92 Nasal 4.0L Cannula 12/03 2325 100.6 82 18 133/68 94 Room Air 12/03 2153 Non 10L ReBreather 12/04 2151 101.9 82 28 135/70 99 Room Air 12/039 98 Non 100% ReBreather Intake & Output 12/04 0800 12/04 0000 12/03 1600 Intake Total 0 Output Total Balance 0 Intake, Oral 0 Patient 148 lb 165 lb Weight Weight Bed scale Estimated Measurement Method Physical Exam General Appearance Alert, Oriented X3, Cooperative, No Acute Distress Skin No Rashes, No Significant Lesion Skin Temp/Moisture Exam: Warm/Dry Sepsis Skin Exam (color): Normal for Ethnicity HEENT Mucous Membr. moist/pink Neck Supple Cardiovascular Regular Rate, Normal S1, Normal S2 Lungs Expiratory wheezes in bilateral lung luna; noisy exam; no crackles Abdomen Normal Bowel Sounds, Soft, No Tenderness Neurological Normal Gait, Normal Speech, Strength at 5/5 X4 Ext Extremities No Cyanosis, No Edema Vascular Normal Pulses, Pulses Symmetrical Last 24 Hrs of Labs/Sean: Laboratory Tests 12/03/175: pH 7.40, pCO2 46 H, pO2 125 H, HCO3 27, ABG O2 Sat (Measured) 97.0, P-50 (Temp Corrected) Y, Carboxyhemoglobin 0.7 L, O2 Concentration % 7L, Temperature 101.9 H, O2 Delivery Method NEB, Phlebotomy Draw Site RIGHT RADIAL 12/03/172119: Anion Gap 8, Estimated GFR > 60, BUN/Creatinine Ratio 20.0, Glucose 181 H, Lactic Acid 1.0, Calcium 8.7, Total Bilirubin 1.4 H, Direct Bilirubin 0.6 H, AST 42 H, ALT 41, Alkaline Phosphatase 69, Troponin I 0.01, Fao-K-Lbhvnjrxrqn Pept 936 H, Total Protein 7.0, Albumin 3.8, Amylase 53, Lipase 76, D-Dimer High Sensitivty 684 H, CBC w Diff MAN DIFF ORDERED, RBC 4.43, MCV 91.8, MCH 31.0, MCHC 33.8, RDW 13.6, MPV 8.0, Segmented Neutrophils 12 L, Band Neutrophils 14 H, Lymphocytes 30, Monocytes 42 H, Eosinophils 1, Basophils 1, Platelet Estimate ADEQUATE, Polychromasia 1+ 12/03/172113: Wtl-T-Xcbaswhzyne Pept Cancelled Microbiology 12/03 2137 BLOOD: Blood Culture - RECD 12/04 2127 BLOOD: Blood Culture - RECD Assessment/Plan Assessment: Patient is a 66 year oldf emale with PMH of COPD on 3L home O2 (previous chronic smoker), DM, HTN who presented to ED for worsening dyspnea. Patient has had a mild non productive cough. Denies fevers, chills, sob, cp, n/v at home. EMERGENCY DEPARTMENT: IV Solu Medrol 125 X 1, Azithro X 1, Ceftriaxone X 1, Nebulizer Treatments Vitals: 101.9 , 82, 28, 135/70 Labs: 9.8, 13.8, 40.7, Plt 228 D- Dimer : 684 Chemistry: 132 Na, K 4.0, Cl 95, CO2 30, BUN 16, Cr 0.8 Glucose 181, Lactic Acid 1.0, Total Bilirubin 1.4 (direct 0.6), AST 42, ALT 41, ALK P 69 Pro BNP 936 Amylase 53, Lipase 76 Blood Gas: 7.40, 46 CO2, 125 O2, 27 HCO3 CXR: Interval development of subtle patchy opacity within the lateral left upper lobe. With provided history, this likely represents pneumonia. Follow-up imaging recommended status post treatment to ensure complete resolution. Chest CTA: No evidence of central or segmental pulmonary embolism. Multifocal areas of nodular consolidation and groundglass opacities throughout the bilateral lungs is most compatible with multifocal pneumonia. Mildly prominent mediastinal and hilar lymph nodes, presumably reactive in etiology. Short-term interval follow-up with repeat CT chest in 4-6 weeks following therapy is recommended to ensure resolution and exclude underlying malignancy. Mild interlobular septal thickening is nonspecific, though may reflect mild interstitial edema. -Emphysematous changes. Previous ECHO: Normal size left ventricle. No obvious regional wall motion abnormalities. Left ventricular wall thickness increased. Normal left ventricular ejection fraction estimated at 55-60%. PROBLEM LIST: 1. Pneumonia 2. COPD Exacerbation 3. Hypertension 4. Diabetes Pneumonia Most likely community acquired. Patient found to be febrile with 101.9 temperature in the ED. Has noticed a cough prior to admission, non-productive and mild. Mild dyspnea at home with difficulty walking as per patient. Has not had her oxygen in one week. Likely community acquired pneumonia. History of COPD and chronic smoking. CXR and chest CT show multifocal areas of consolidation. Given 1 X azithro and ceftriaxone in ED. * Continue IV Azithromycin + Ceftriaxone * Monitor for leukocytosis and fevers * Follow up blood cultures, sputum cultures, urine legionella/strep antigen COPD Exacerbation Home oxygen requirements is 3L. Patient states she has not had her portable at her daughters home for 1 week. Mild non-productive cough. Wheezing on examination. CXR/CT chest show emphysematous changes and multifocal consolodation, negative for PE. Patient takes BREO at home. * IV solu-medrol 40mg q12 * IV Azithromycin + Cefriaxone * TRC/Duonebs; Albuterol q6PRN Chronic Medical Conditions (Diabetes, Hypertension) * ISS with accu-checks * Continue home dose: Diltiazem 240, Lasix 20 BID, Atorvastatin 10mg * Hold Metformin Code: Full Code DVT PPx: Lovenox Diet: Consistent Carbohydrate 3 As Ranked By This Provider Problem List: 1. Respiratory failure 2. COPD exacerbation 3. Pneumonia Core Measures/Misc (11/25) Acute Coronary Syndrome ACS Diagnosis: No Congestive Heart Failure Congestive Heart Failure Diagnosis No Cerebrovascular Accident CVA/TIA Diagnosis: No VTE (View Protocol) VTE Risk Factors Age>40 No Mechanical VTE Prophylaxis d/t N/A MechProphylax Ordered No VTE Pharm Prophylaxis d/t NA PharmProphylax ordered Sepsis (View protocol) Sepsis Present: Yes If YES complete Sepsis Event Note If YES complete Sepsis Event Note Ghulam Payton MD 12/04/17 0237: Core Measures/Misc (11/25) Sepsis (View protocol) If YES complete Sepsis Event Note If YES complete Sepsis Event Note Attending MD Review Statement Attending Statement Attending MD Statement: examined this patient, discuss w/resident/PA/CLIENT SERVICE SUPERVISOR, agreed w/resident/PA/CLIENT SERVICE SUPERVISOR Attending Assessment/Plan: Patient is seen and examined independently by me. Care plan discussed with medical records technician and/or resident. I agree with the physical exam findings and plan of care as outlined above with the following changes and additions. 66 yo female history of COPD on 3 L NC, ex-smoker (20 pack history, quit 09/01/17 ), HTN, CHF, presents with non productive cough and generalized weakness. Patient ran out of her O2 recently. She denies fever, chills, chest pain, SOB, abdominal pain, nausea, vomiting, diarrhea or dysuria. On exam, lungs has bilateral diffused wheezing with no significant rhonchi or rales. In the ED, O2 sat 60s at triage. T max 101.9. WBC 9.8 with 14 bands. Lactic acid 1.0. D-dimer 684. Troponin 0.01. BNP 936. CXR shows NAKUL infiltrate with no acute edema. CTA chest shows no acute PE but has multifocal opacities of bilateral lungs. Patient is admitted to inpatient to [facility] for CAP and COPD exacerbation. Check blood and sputum cultures. Urine Leg/Strept Ag. Start Solumedrol, Duoneb, ceftriaxone and Zithromax. Signed: MD GABBI Nava MD,Breanna 12/04/17 0832: Core Measures/Misc (11/25) Sepsis (View protocol) If YES complete Sepsis Event Note If YES complete Sepsis Event Note Resident Review Statement Resident Statement: examined this patient, discussed with market research intern, agreed with market research intern, reviewed EMR data (avail), reviewed images, amended to note Other Findings: Patient is a 66 y/o female with PMH of COPD Oxygen Dependent on 3L NC at baseline, 20 pack year history of smoking quit on September 01, 2017, DM, HTN presenting to [place] due to weakness. Patient was gino in by her daughter due to difficulty walking. In the ED patient was found to have oxygen saturation of 60%. Patient was placed on nonrebreather, was given IV Solu-Medrol, IV Mag and DuoNeb treatments with improvement in her oxyen saturation and on interview was down to 4L NC. Patient reports that she uses oxygen at home however has been out of oxygen for the past 1 week. Also reports a one day history of minimally productive cough. Patient initially reported shortness of breath to the ED however upon interview denied any shortness of breath. Denies fever, chills, chest pain, abdominal pain, n/v/, diarrhea/constipation, lightheaded, dizziness. Patient reports she follow with her PCP, Dr. Eng and a burrito maker, Dr. Cevallos whom she saw 1 month ago with no changes in her medications. Patient lives by herself, denies sick contacts. Reports allergies to pollen and doxycycline (is unsure of what type of allergic reaction she gets). Patient reports she quit smoking tobacco on September 01, 2017. She was previously smoking 10 cigarettes per day for the last 40 years. Denies any other illicit drug use or alcohol use. Of note patient was last discharged in July 2017 and left AMA as she did not want to wait for over the weekend for oxygen. Patient is currently on: metformin 500mg, diltiazem 240mg ER daily, Atorvastatin 10mg daily, Lasix 20mg BID, Albuterol Sul 4mg daily, Aspirin 81mg, Brio, Hepatil (guyanese supplement for liver) Physical exam and Labs/Imaging as Above Patient is a 66 y/o female, former smoker, with PMH signfincant for COPD O2 dependent on 3L NC now presenting with acute hypoxic respiratory failure with CTA which was done due to elevated d-dimer was negative for PE however showed multifocal areas of consolidation and groundglass opacities consistent with multifocal pneumonia. 1. Community acquired pneumonia 2. COPD Exacerbation 3. Chronic conditions: COPD, DM, HTN Plan: Admit to Gen Med IV Ceftriaxone and IV Azithromycin IV Solu-Medrol 40mg BID TRC and DuoNeb treatments round the clock Follow up sputum cultures if patient is able to provide sample Urine strep and legionella antigens Follow up blood cultures Continue home medications: aspirin, lasix, diltiazem, atorvastatin, except for metformin Novolog SS with Accuchecks TIDAC/qHS DVT PPx: ALPS, Lovenox Diet: Consistent Carb Code: Full code
--- NOTE | 2017-12-03 23:33 | CT SCAN REPORT ---
EXAMINATION: CT ANGIOGRAM OF THE CHEST WITH AND WITHOUT CONTRAST (CT PULMONARY ANGIOGRAM FOR PE) CLINICAL INFORMATION: Reason for Study:
Presumptive Dx: dyspnea
Signs Symptoms: +dimer
COMPARISON: Same day chest radiograph TECHNIQUE: Prior to contrast administration, noncontrast localization images were obtained. Subsequently, multidetector volumetric imaging was performed from the thoracic inlet to below the diaphragms following the administration of 80 mL Omnipaque 350 intravenous contrast. No contrast reaction reported. Sagittal, coronal, and MIP oblique sagittal reformatted images were obtained on the CT workstation, uploaded to PACS, and reviewed. Total exam dose-length product 292 mGy-cm. FINDINGS: QUALITY OF STUDY/CONTRAST BOLUS: Satisfactory PULMONARY ARTERIES: No central or segmental pulmonary emboli. THORACIC AORTA: No aneurysm or dissection. LUNG: Multifocal areas of groundglass and ill-defined nodular consolidation is seen involving the bilateral lungs, particularly in the left upper lobe, most compatible with multifocal pneumonia. Additional cluster of ill-defined nodular densities are seen for example in the right middle lobe (series 2, image 317). There is mild intralobular septal thickening at the lung bases and left upper lobe. There is a background of emphysematous changes. Calcified subpleural granuloma seen at the right lung apex. Central airways are patent. There is diffuse bronchial wall thickening. PLEURA: No pleural effusion or pneumothorax. MEDIASTINUM: Normal heart size. No pericardial effusion. Coronary artery calcifications noted. A few mildly prominent mediastinal and hilar lymph nodes are seen, nonspecific, possibly reactive in etiology. An index right hilar node measures 2.0 x 1.8 cm (series 2, image 202). No evidence of septal bowing or right heart strain. CHEST WALL/AXILLA: No axillary or internal mammary lymphadenopathy. Punctate metallic densities seen within the right breast parenchyma; correlate for history of biopsy clips. OSSEOUS STRUCTURES: No acute or suspicious osseous abnormality. UPPER ABDOMEN: Small hiatal hernia. No reflux of contrast into the hepatic veins to suggest elevated right heart pressures. IMPRESSION: No evidence of central or segmental pulmonary embolism. Multifocal areas of nodular consolidation and groundglass opacities throughout the bilateral lungs is most compatible with multifocal pneumonia. Mildly prominent mediastinal and hilar lymph nodes, presumably reactive in etiology. Short-term interval follow-up with repeat CT chest in 4-6 weeks following therapy is recommended to ensure resolution and exclude underlying malignancy. Mild interlobular septal thickening is nonspecific, though may reflect mild interstitial edema. Emphysematous changes.
[2017-12-04 00:37] VITALS: BP 126/62
[2017-12-04] MEDS ORDERED: BREO ELLIPTA 21 EACH INH (02:31)
[2017-12-04] MEDS ORDERED: ATORVASTATIN CA10 M1 PO (02:32)
[2017-12-04 07:07] VITALS: BP 118/80
--- NOTE | 2017-12-04 07:23 | PN- Housestaff ---
Jung Woodesh 12/04/17 0722: Subjective Follow-up For: COPD Exacerbation Subjective: Patient seen and examined at bedside sitting up comfortably. She reports a mild non productive cough. She is not using oxygen at the moment and claims she has not used it for one week. Denies, fevers, chills, shortness of breath, or chest tightness/chest pain. Review of Systems Constitutional: Denies: see HPI. Objective Last 24 Hrs of Vital Signs/I&O Vital Signs Date Time Temp Pulse Resp B/P B/P Pulse O2 O2 Flow FiO2 Mean Ox Delivery Rate 12/05 0000 Nasal 3.0L Cannula 12/04 2345 98.5 90 18 140/70 92 12/04 2345 97.8 64 20 110/62 93 12/04 1805 98 Nasal 3.0L Cannula 12/04 1418 98.6 64 20 110/72 95 Nasal Cannula 12/04 0952 Nasal 3.0L Cannula 12/04 0948 93 Nasal 3.0L Cannula 12/04 0800 97 Nasal 4.0L Cannula 12/04 0707 98.6 61 20 118/80 97 Intake & Output 12/05 0800 12/05 0000 12/04 1600 Intake Total 400 410 Output Total 500 Balance -100 410 Intake, IV 300 10 Intake, Oral 100 400 Output, Urine 500 Physical Exam General Appearance: Alert, Oriented X3, Cooperative, No Acute Distress Skin: No Rashes Skin Temp/Moisture Exam: Warm/Dry Sepsis Skin Exam (color): Normal for Ethnicity HEENT: Atraumatic, Mucous Membr. moist/pink Neck: Supple Cardiovascular: Normal S1, Normal S2 Lungs: Expiratory wheezes B/L, No crackles Abdomen: Normal Bowel Sounds, Soft, No Tenderness Extremities: No Cyanosis, No Tenderness/Swelling Vascular: Normal Pulses Last 24 Hrs of Lab/Sean Results Last 24 Hrs of Labs/Mics: Laboratory Tests 12/04/17 0640: Anion Gap 13, Estimated GFR > 60, BUN/Creatinine Ratio 27.1 H, CBC w Diff NO MAN DIFF REQ, RBC 4.29, MCV 92.4, MCH 31.0, MCHC 33.6, RDW 13.4, MPV 9.0, Gran % 70.9, Lymphocytes % 14.8 L, Monocytes % 13.9 H, Eosinophils % 0.1, Basophils % 0.3, Absolute Granulocytes 3.9, Absolute Lymphocytes 0.8 L, Absolute Monocytes 0.8 H, Absolute Eosinophils 0, Absolute Basophils 0 Microbiology 12/04 1800 NASOPHARYN: Influenza Virus A & B Rapid Smear - COMP 12/04 829 URINE ROUT: Legionella Antigen - COMP 12/04 829 URINE ROUT: Streptococcus pneumoniae Antigen (M - COMP Assessment/Plan Assessment: 66 year old female with PMH of COPD on baseline 3L home O2 (chronic smoker quit August 2017 after smoking 1/2 pack a day for 40 years), diabetes mellitus, hypertension who presented to the ED for shortness of breath. She has not been using her oxygen for one week apparently, because she was feeling good and saturating above 90s. # COPD exacerbation # Hx of DM # Hx HTN # Hx of Depression # Hx of Anxiety Plan: - Appreciate pulm recs - Continue antibiotics - Continue steroids - Sputum Cx - Flu swab - Continue home medications Problem List: 1. COPD exacerbation Pain Ratin Pain Location: None Pain Goal: Remain pain free Pain Plan: Per pathway Tomorrow's Labs & Rationales: None (WBC wnl, Lytes stable) Darion Beard MD 12/04/17 2329: Attending MD Review Statement Attending Statement Attending MD Statement: examined this patient, discuss w/resident/PA/FRAMING CARPENTER, agreed w/resident/PA/FRAMING CARPENTER, reviewed EMR data (avail), discussed with nursing, discussed with case mgmt, amended to note Attending Assessment/Plan: The patient was seen and discussed with house staff. Pulmonary input from Dr. Garcia appreciated. Will continue current care. Await cultures, etc.
[2017-12-04 08:07] LABS: ABSOLUTE BASOPHIL COUNT 0 /CUMM (0.0-0.2); ABSOLUTE EOSINOPHIL COUNT 0 /CUMM (0.0-0.7); ABSOLUTE GRANULOCYTE CT 3.9 /CUMM (1.4-6.5); ABSOLUTE LYMPH COUNT 0.8 /CUMM (1.2-3.4); ABSOLUTE MONOCYTE COUNT 0.8 /CUMM (0.10-0.60); BASOPHIL % 0.3 % (0.0-2.0); EOSINOPHIL % 0.1 % (0-5); GRANULOCYTE % 70.9 % (42.2-75.2); HEMATOCRIT 39.7 % (37-47); MEAN CORPUSCULAR HGB CONC 33.6 G/DL (33.0-37.0); MEAN CORPUSCULAR VOLUME 92.4 FL (81.0-99.0); PLATELET COUNT 170 /CUMM (130-400); RBC DISTRIBUTION WIDTH 13.4 % (11.5-14.5); RED BLOOD CELL CT 4.29 /CUMM (4.20-5.40); WHITE BLOOD CELL COUNT 5.5 /CUMM (4.8-10.8)
[2017-12-04] MEDS ORDERED: ASPIRIN81 M4 PO (08:41)
[2017-12-04 14:18] VITALS: BP 110/72
--- NOTE | 2017-12-04 14:20 | Cons- Pulmonary ---
General Information and HPI Consulting Request Date of Consult: 12/04/17 Requested By: MED TEAM History of Present Illness: Ms. Lucia is a 66 year old female with PMH of COPD on baseline 3L home O2 ( chronic smoker quit August 2017 after smoking 1/2 pack a day for 40 years), diabetes mellitus, hypertension who presented to the ED for shortness of breath. Patient states she "couldnt walk" and was brought in concern by her daughter. She noticed this yesterday with associated non-productive cough. Patient denied any symptoms of fevers, chills, nausea, vomiting, diarrhea, chest pain or shortness of breath. She also denied sick contact at home. Patient states she has home oxygen in her home in [place], however she has finished her portable oxygen equipment while at her [facility] home. Last used the home oxygen 1 week ago. She follows up with a sfd[employer] developer Dr. Cevallos who she saw 1 month ago. Patient denies any recent travel, pets at home and does not work. Quit smokign August 2017 after smoking half a pack a day for 40 years. No significant alcohol use or illicit drug use noted. States she has an allergy to doxycycline but does not know what happens whens he takes it. Allergies/Medications Allergies: Coded Allergies: No Known Allergies (03/10/17) Home Med List: Albuterol Sulfate (Ventolin Hfa) 90 MCG HFA.AER.AD 2 PUF INH AD PRN RESP. ( Reported) Albuterol Sulfate 2 MG/5 ML SYRUP 5 ML PO 4 TIMES/DAY BREATHING PROBLEMS ( Reported) Aspirin (Aspirin*) 81 MG TAB.CHEW 1 TAB PO DAILY HEART (Reported) Atorvastatin Calcium 10 MG TABLET 1 TAB PO DAILY HEART (Reported) Diltiazem HCl (Diltiazem 24HR ER) 240 MG CAP.ER.24H 1 CAP PO DAILY HEART ( Reported) Fluticasone/Vilanterol (Breo Ellipta 200-25 Mcg INH) 200 MCG-25 MCG/DOSE BLST.W.DEV 1 PUF INH DAILY COPD (Reported) Furosemide 20 MG TABLET 1 TAB PO DAILY WATER RETENTION (Reported) Metformin Hydochloride (Glucophage) 500 MG TABLET 1 TAB PO 0800,1700 BLOOD SUGAR Prednisone 10 MG TABLET 1 TAB PO DAILY COPD (Reported) Review of Systems Review of Systems Constitutional: Reports: see HPI. 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 Home Services at Home: Oxygen Smoking Status: Former Smoker Functional Ability ADLs Independent: dressing, eating, toileting, bathing. Ambulation: independent IADLs Independent: shopping, housework, finances, food prep, telephone, transportation , medication admin. Exam & Diagnostic Data Last 24 Hrs of Vital Signs/I&O Vital Signs Date Time Temp Pulse Resp B/P B/P Pulse O2 O2 Flow FiO2 Mean Ox Delivery Rate 12/04 0952 Nasal 3.0L Cannula 12/04 0948 93 Nasal 3.0L Cannula 12/04 0707 98.6 61 20 118/80 97 12/04 0037 98.6 80 20 126/62 92 12/04 0025 92 Nasal 4.0L Cannula 12/03 2326 100.6 82 18 133/68 94 Room Air 12/03 2154 Non 10L ReBreather 12/03 2152 101.9 82 28 135/70 99 Room Air 12/03 2149 98 Non 100% ReBreather Intake & Output 12/04 1600 12/04 0800 12/04 0000 Intake Total 310 0 Output Total Balance 310 0 Intake, IV 10 Intake, Oral 300 0 Patient 148 lb 165 lb Weight Weight Bed scale Estimated Measurement Method Last 48 Hrs of Labs/Sean: Laboratory Tests 12/04/17 0640: Anion Gap 13, Estimated GFR > 60, BUN/Creatinine Ratio 27.1 H, CBC w Diff NO MAN DIFF REQ, RBC 4.29, MCV 92.4, MCH 31.0, MCHC 33.6, RDW 13.4, MPV 9.0, Gran % 70.9, Lymphocytes % 14.8 L, Monocytes % 13.9 H, Eosinophils % 0.1, Basophils % 0.3, Absolute Granulocytes 3.9, Absolute Lymphocytes 0.8 L, Absolute Monocytes 0.8 H, Absolute Eosinophils 0, Absolute Basophils 0 12/03/17 2215: pH 7.40, pCO2 46 H, pO2 125 H, HCO3 27, ABG O2 Sat (Measured) 97.0, P-50 (Temp Corrected) Y, Carboxyhemoglobin 0.7 L, O2 Concentration % 7L, Temperature 101.9 H, O2 Delivery Method NEB, Phlebotomy Draw Site RIGHT RADIAL 12/03/172119: Anion Gap 8, Estimated GFR > 60, BUN/Creatinine Ratio 20.0, Glucose 181 H, Lactic Acid 1.0, Calcium 8.7, Total Bilirubin 1.4 H, Direct Bilirubin 0.6 H, AST 42 H, ALT 41, Alkaline Phosphatase 69, Troponin I 0.01, Riq-B-Rrwuzguegjc Pept 936 H, Total Protein 7.0, Albumin 3.8, Amylase 53, Lipase 76, D-Dimer High Sensitivty 684 H, CBC w Diff MAN DIFF ORDERED, RBC 4.43, MCV 91.8, MCH 31.0, MCHC 33.8, RDW 13.6, MPV 8.0, Segmented Neutrophils 12 L, Band Neutrophils 14 H, Lymphocytes 30, Monocytes 42 H, Eosinophils 1, Basophils 1, Platelet Estimate ADEQUATE, Polychromasia 1+ 12/03/172113: Dsf-G-Lbmhpppnsjg Pept Cancelled Microbiology 12/04 829 URINE ROUT: Legionella Antigen - COMP 12/04 829 URINE ROUT: Streptococcus pneumoniae Antigen (M - COMP Assessment/Plan Impression/Plan: General Appearance Alert, Oriented X3, Cooperative, No Acute Distress Skin No Rashes, No Significant Lesion Skin Temp/Moisture Exam: Warm/Dry Sepsis Skin Exam (color): Normal for Ethnicity HEENT Mucous Membr. moist/pink Neck Supple Cardiovascular Regular Rate, Normal S1, Normal S2 Lungs Expiratory wheezes in bilateral lung luna; noisy exam; no crackles Abdomen Normal Bowel Sounds, Soft, No Tenderness Neurological Normal Gait, Normal Speech, Strength at 5/5 X4 Ext Extremities No Cyanosis, No Edema Vascular Normal Pulses, Pulses Symmetrical CTA PULMONARY ARTERIES: No central or segmental pulmonary emboli. THORACIC AORTA: No aneurysm or dissection. LUNG: Multifocal areas of groundglass and ill-defined nodular consolidation is seen involving the bilateral lungs, particularly in the left upper lobe, most compatible with multifocal pneumonia. Additional cluster of ill-defined nodular densities are seen for example in the right middle lobe (series 2, image 317). There is mild intralobular septal thickening at the lung bases and left upper lobe. There is a background of emphysematous changes. Calcified subpleural granuloma seen at the right lung apex. Central airways are patent. There is diffuse bronchial wall thickening. PLEURA: No pleural effusion or pneumothorax. MEDIASTINUM: Normal heart size. No pericardial effusion. Coronary artery calcifications noted. A few mildly prominent mediastinal and hilar lymph nodes are seen, nonspecific, possibly reactive in etiology. An index right hilar node measures 2.0 x 1.8 cm (series 2, image 202). No evidence of septal bowing or right heart strain. CHEST WALL/AXILLA: No axillary or internal mammary lymphadenopathy. Punctate metallic densities seen within the right breast parenchyma; correlate for history of biopsy clips. OSSEOUS STRUCTURES: No acute or suspicious osseous abnormality. UPPER ABDOMEN: Small hiatal hernia. No reflux of contrast into the hepatic veins to suggest elevated right heart pressures. IMPRESSION: No evidence of central or segmental pulmonary embolism. Multifocal areas of nodular consolidation and groundglass opacities throughout the bilateral lungs is most compatible with multifocal pneumonia. Mildly prominent mediastinal and hilar lymph nodes, presumably reactive in etiology. Short-term interval follow-up with repeat CT chest in 4-6 weeks following therapy is recommended to ensure resolution and exclude underlying malignancy. Mild interlobular septal thickening is nonspecific, though may reflect mild interstitial edema. Emphysematous changes. DICTATED BY: Awais INTERIANO,Kostas DATE/TIME DICTATED:12/03/172314 66 y/o lady with clinically has severe copd with * ACOPDE * CAP multilobar with fever, bandemia * Recent smoking history and now says has quit * HTN / DM * Depression/anxiety REC Cont abx Cont steroids Sputum culture Flu swab Swab nares for MRSA Await cultures Will follow Consult Acknowledgment - Thank you for your consult request.
[2017-12-04 23:45] VITALS: BP 110/62; BP 140/70
[2017-12-05 07:01] VITALS: BP 106/84
--- NOTE | 2017-12-05 08:29 | PN- Housestaff ---
See Addendum Subjective Follow-up For: COPD Exacerbation Subjective: Patient seen and examined at bedside. She reports an improvement in her breathing today. She is on 3L of oxygen via nasal canula. She has a productive cough, and is collecting her sputum for culture. She reports that cannot sleep well in a hospital. She denies shortness of breath, or chest tightness/chest pain. Her only complaint is some dryness from the oxygen. Review of Systems Constitutional: Denies: see HPI. Objective Last 24 Hrs of Vital Signs/I&O Vital Signs Date Time Temp Pulse Resp B/P B/P Pulse O2 O2 Flow FiO2 Mean Ox Delivery Rate 12/05 1414 97.5 52 18 110/60 95 Nasal 3.0L Cannula 12/05 0843 93 Nasal 3.0L Cannula 12/05 08 93 Nasal 3.0L Cannula 12/05 0701 98.6 66 20 106/84 99 12/05 0000 Nasal 3.0L Cannula 12/04 2345 98.5 90 18 140/70 92 12/04 2345 97.8 64 20 110/62 93 Intake & Output 12/05 1600 12/05 0800 12/05 0000 Intake Total 460 100 400 Output Total 500 Balance 460 100 -100 Intake, IV 10 300 Intake, Oral 450 100 100 Output, Urine 500 Physical Exam General Appearance: Alert, Oriented X3, Cooperative, No Acute Distress Skin: No Rashes Skin Temp/Moisture Exam: Warm/Dry Sepsis Skin Exam (color): Normal for Ethnicity HEENT: Atraumatic, Mucous Membr. moist/pink Neck: Supple Cardiovascular: Normal S1, Normal S2 Lungs: Slight Wheezing B/L Abdomen: Normal Bowel Sounds, Soft, No Tenderness Extremities: No Cyanosis, No Tenderness/Swelling Vascular: Normal Pulses Current Medications: Current Medications Sig/Ranjeet Start time Last Medication Dose Route Stop Time Status Admin Acetaminophen 650 MG Q6P PRN 12/04 0230 DCD PO Albuterol Sulfate 3 ML EVERY 4 HRS/AWAKE 12/04 1200 DCD 12/05 INH 1157 Aspirin 81 MG DAILY 12/04 899 DCD 12/05 PO 923 Atorvastatin Calcium 10 MG DAILY 12/04 899 DCD 12/05 PO 923 Azithromycin 500 MG Q24H 12/04 2199 DCD 12/04 Sodium Chloride 250 ML IV 2043 Ceftriaxone Sodium 1,000 MG Q24H 12/040 DCD 12/04 IV 2040 Diltiazem HCl 240 MG DAILY 12/04 09 DCD 12/05 PO 09 Enoxaparin Sodium 40 MG DAILY 12/04 899 DCD 12/05 SC 0924 Furosemide 20 MG DAILY 12/04 09 DCD 12/05 PO 0924 Insulin Aspart 0 AT BEDTIME 12/04 2100 DCD SC Insulin Aspart 0 TIDAC 12/04 1200 DCD 12/05 SC 1242 Ipratropium Lamoure 2.5 ML EVERY 4 HRS/AWAKE 12/04 1200 DCD 12/05 INH 1159 Methylprednisolone 40 MG Q12 12/04 899 DCD 12/05 IV 0924 Last 24 Hrs of Lab/Sean Results Last 24 Hrs of Labs/Mics: Microbiology 12/05 1345 LOWER RESP: Respiratory Culture - CAN Cancelled: POOR QUALITY SPECIMEN CALLED MICHAEL GUTIÉRREZ AT 1645 12/05 1345 LOWER RESP: Gram Stain - CAN Cancelled: POOR QUALITY SPECIMEN CALLED MICHAEL GUTIÉRREZ AT 1645 Assessment/Plan Assessment: 66 year old female with PMH of COPD on baseline 3L home O2 (chronic smoker quit August 2017 after smoking 1/2 pack a day for 40 years), diabetes mellitus, hypertension who presented to the ED for shortness of breath. She has not been using her oxygen for one week apparently, because she was feeling good and saturating above 90s. -Legionella, Strep, Flu swab, all came back negative Problem list: # COPD exacerbation # Hx of DM # Hx HTN # Hx of Depression # Hx of Anxiety Plan: - Continue antibiotics, switch to PO Moxifloxacin or Levofloxacin tmrw - Steroid taper starting from tmrw - Humidfier for oxygen - Sputum cx rejected from lab, will have to redo - Consider PA/lateral cxr - Patient would like glucometer for home, due to steroid use and hx of DM - Continue home medications DVT ppx Full Code Problem List: 1. COPD exacerbation Pain Ratin Pain Location: None Pain Goal: Remain pain free Pain Plan: None Tomorrow's Labs & Rationales: None
--- NOTE | 2017-12-05 12:38 | PN- Pulmonary ---
Subjective HPI/Critical Care Issues: IMProving stable No further fever on abx Objective Current Medications: Current Medications Sig/Ranjeet Start time Last Medication Dose Route Stop Time Status Admin Acetaminophen 650 MG Q6P PRN 12/04 0230 AC PO Albuterol Sulfate 3 ML EVERY 4 HRS/AWAKE 12/04 1200 AC 12/05 INH 1157 Aspirin 81 MG DAILY 12/04 09 AC 12/05 PO 0924 Atorvastatin Calcium 10 MG DAILY 12/04 09 AC 12/05 PO 24 Azithromycin 500 MG Q24H 12/040 AC 12/04 Sodium Chloride 250 ML IV 204 Ceftriaxone Sodium 1,000 MG Q24H 12/04 2200 AC 12/04 IV 2040 Diltiazem HCl 240 MG DAILY 12/04 09 AC 12/05 PO 923 Enoxaparin Sodium 40 MG DAILY 12/04 09 AC 12/05 SC 923 Furosemide 20 MG DAILY 12/04 09 AC 12/05 PO 923 Insulin Aspart 0 AT BEDTIME 12/04 2100 AC SC Insulin Aspart 0 TIDAC 12/04 1200 AC 12/05 SC 924 Ipratropium Novi 2.5 ML EVERY 4 HRS/AWAKE 12/04 1200 AC 12/05 INH 1159 Methylprednisolone 40 MG Q12 12/04 09 AC 12/05 IV 0924 Vital Signs & I&O Last 24 Hrs of Vitals and I&O: Vital Signs Date Time Temp Pulse Resp B/P B/P Pulse O2 O2 Flow FiO2 Mean Ox Delivery Rate 12/05 0843 93 Nasal 3.0L Cannula 12/05 0800 93 Nasal 3.0L Cannula 12/05 0701 98.6 66 20 106/84 99 12/05 0000 Nasal 3.0L Cannula 12/04 2345 98.5 90 18 140/70 92 12/04 2345 97.8 64 20 110/62 93 12/04 1805 98 Nasal 3.0L Cannula 12/04 1418 98.6 64 20 110/72 95 Nasal Cannula Intake & Output 12/05 1600 12/05 0800 12/05 0000 Intake Total 100 400 Output Total 500 Balance 100 -100 Intake, IV 300 Intake, Oral 100 100 Output, Urine 500 Impression/Plan Impression/Plan Impression/Plan: CT chest IMPRESSION: No evidence of central or segmental pulmonary embolism. Multifocal areas of nodular consolidation and groundglass opacities throughout the bilateral lungs is most compatible with multifocal pneumonia. Mildly prominent mediastinal and hilar lymph nodes, presumably reactive in etiology. Short-term interval follow-up with repeat CT chest in 4-6 weeks following therapy is recommended to ensure resolution and exclude underlying malignancy. Mild interlobular septal thickening is nonspecific, though may reflect mild interstitial edema. Emphysematous changes. DICTATED BY: Kostas Ernandez MD DATE/TIME DICTATED:12/03/172314 66 y/o lady with clinically has severe copd with * ACOPDE better * CAP multilobar with fever, bandemia better * Recent smoking history and now says has quit * HTN / DM * Depression/anxiety REC Cont abx can change to moxi in am for a total of seven days of antibiotics Cont steroids, change to po and taper in 8 days Sputum culture Cxr today Await cultures Will follow
[2017-12-05 14:14] VITALS: BP 110/60; BP 96/50
--- NOTE | 2017-12-05 14:56 | Patient Discharge Instructions ---
Discharge Instructions General Discharge Information Watch for these problems: If you have any exacerbations of COPD please come back to ER. Special Instructions: Please follow up with Dr. aGrcia (your primary care) within one week. Please continue to use your oxygen regularly. Please check your oxygen saturations at least twice a day. Please continue to take your medications as prescribed. Acute Coronary Syndrome Inclusion Criteria At DC or during hospital stay patient has or had the following: ACS DIAGNOSIS No Discharge Core Measures Meds if any: Prescribed or Continued at Discharge Meds if any: NOT Prescribed or Continued at Discharge Congestive Heart Failure Inclusion Criteria At DC or during hospital stay patient has or had the following: CHF DIAGNOSIS No Discharge Core Measures Meds if any: Prescribed or Continued at Discharge Meds if any: NOT Prescribed or Continued at Discharge Cerebrovascular accident Inclusion Criteria At DC or during hospital stay patient has or had the following: CVA/TIA Diagnosis No Discharge Core Measures Meds if any: Prescribed or Continued at Discharge Meds if any: NOT Prescribed or Continued at Discharge Venous thromboembolism Inclusion Criteria VTE Diagnosis No VTE Type NONE VTE Confirmed by (Test) NONE Discharge Core Measures - Per Current guidelines, there needs to be overlap - treatment for the first 5 days of Warfarin therapy. - If discharged on Warfarin prior to 5 days of - overlap therapy, the patient will need to be - assessed for post discharge needs including - *Post discharge parental anticoagulation - *Warfarin and/or parental anticoagulation education - *Follow up date to check INR post discharge At least 5 days overlap therapy as Inpatient No Meds if any: Prescribed or Continued at Discharge Note: Overlap Therapy is Warfarin and Anticoagulant Meds if any: NOT Prescribed or Continued at Discharge
[2017-12-05] MEDS ORDERED: AVELOX400 M1 PO (15:22)
[2017-12-05] MEDS ORDERED: PREDNISONE10 M2 PO (15:22)
[2017-12-05] MEDS ORDERED: NASONEX17 GM NASB (15:24)
--- NOTE | 2017-12-06 06:13 | Discharge Summary ---
Visit Information Visit Dates Admission Date: 12/03/17 Discharge Date: 12/05/17 Hospital Course Course Attending Physician: Darion Beard MD Primary Care Physician: Patient Has No Primary Care Dr Allergies: Coded Allergies: No Known Allergies (03/10/17) Discharge Instructions Medications at Discharge Discharge Medications: Stop taking the following medications: Prednisone (Prednisone) 10 MG TABLET ORAL DAILY Qty = 60 Continue taking these medications: Albuterol Sulfate (Ventolin Hfa) 90 MCG HFA.AER.AD 2 Puff Inhale through mouth As Directed as needed for RESP. Comments: RECIEVED NEBULIZER TREATMENTS IN HOSPITAL Last Taken: 12/05/17 Time: 12 PM Furosemide (Furosemide) 20 MG TABLET 1 Tablet ORAL DAILY Qty = 30 Comments: Last Taken: 12/05/17 Time: 9 AM Albuterol Sulfate (Albuterol Sulfate) 2 MG/5 ML SYRUP 5 Milliliters ORAL 4 TIMES A DAY Qty = 300 Comments: NEB TREATMENT Last Taken: 12/05/17 Time: 12 PM Metformin Hydochloride (Glucophage) 500 MG TABLET 1 Tablet ORAL 0800,1700 Qty = 60 Comments: Last Taken:07/21/17 Time:0800 NOT GIVEN THIS ADMISSION Diltiazem HCl (Diltiazem 24HR ER) 240 MG CAP.ER.24H 1 Capsule ORAL DAILY Comments: Last Taken: 12/05/17 Time: 9 AM Fluticasone/Vilanterol (Breo Ellipta 200-25 Mcg INH) 200 MCG-25 MCG/DOSE BLST.W.DEV 1 Puff Inhale through mouth DAILY Comments: NOT GIVEN IN HOSPITAL Atorvastatin Calcium (Atorvastatin Calcium) 10 MG TABLET 1 Tablet ORAL DAILY Comments: Last Taken: 12/05/17 Time: 9 AM Aspirin (Aspirin*) 81 MG TAB.CHEW 1 Tablet ORAL DAILY Comments: Last Taken: 12/05/17 Time: 9 AM Start taking the following new medications: Moxifloxacin HCl (Avelox) 400 MG TABLET 1 Tablet ORAL DAILY Qty = 7 No Refills Comments: NOT GIVEN IN HOSPITAL Prednisone (Prednisone) 10 MG TABLET 1 Tablet ORAL TWICE DAILY Qty = 18 No Refills Instructions: 12/05 - 12/08 TAKE 3 TABS 10/1 - 10/3 TAKE 2 TABS 10/4 - 10/6 TAKE 1 TAB THEN CONTINUE TO TAKE 10MG DAILY AFTER Comments: IV SOLUMEDROL Last Taken: 12/05/17 Time: 9 AM Mometasone Furoate (Nasonex) 50 MCG SPRAY.PUMP 2 Kinsey Both sides of nose DAILY as needed for DRY NOSE Qty = 1 No Refills Comments: NOT GIVEN IN HOSPITAL
== END 2017-12-05 16:33 | DRG 190 ==
LOC: ERH 20:53 → ERHI 22:38 → 2NA 22:38 → ENRESERV 23:14 → 2NA 12-04 00:24 → ENTRNSPT 12-05 16:05 → EDTRNSPTSTS 12-05 16:08 → CMPTRNSPT 12-05 16:20 → 2NA 12-05 16:33
PROVIDERS: Pediatrics; Student in an Organized Health Care Education/Training Program
DX: J44.1 Chronic obstructive pulmonary disease with (acute) exacerbation (principal); J18.9 Pneumonia, unspecified organism; J44.0 Chronic obstructive pulmonary disease with (acute) lower respiratory infection; Z87.891 Personal history of nicotine dependence; E11.9 Type 2 diabetes mellitus without complications; Z79.84 Long term (current) use of oral hypoglycemic drugs; Z99.81 Dependence on supplemental oxygen; I10 Essential (primary) hypertension; Z79.51 Long term (current) use of inhaled steroids; Z79.52 Long term (current) use of systemic steroids; F32.9 Major depressive disorder, single episode, unspecified; F41.9 Anxiety disorder, unspecified
CPT/HCPCS: 2NAP; ERO; 36592; 71045; 82436; 87040; 87070; 87449; 87450; 87804; 87804-59; 93005; 93010; 94644; 96374; 96375; J0456; J0696; J1650; J2920; J2930; J3490; J7040